=== PATIENT | female | born 1950 | race Caucasian/White ===

== ENCOUNTER 2017-11-07 14:14 | Inpatient (IN) | payer MEDICARE ==
[2017-11-07] MEDS ORDERED: Temazepam 15 MG Cap PO PRN (15:32)
[2017-11-07] MEDS ORDERED: Ondansetron 4 MG/2 ML SDV IV PRN (15:32)
[2017-11-07] MEDS ORDERED: Magnesium Hydroxide 400 MG/5 ML Susp 30 ML Cup PO PRN (15:32)
[2017-11-07] MEDS ORDERED: Acetaminophen 325 MG Tab PO PRN (15:32)
[2017-11-07 16:31] LABS: CHLORIDE,CL 101 mEq/L (98-106); SODIUM,NA 141 mEq/L (136-145)
[2017-11-07] MEDS: Albuterol/Ipratropium 3.0-0.5 MG/3 ML Neb Soln NEB SCH ×2 (16:39→19:40)
[2017-11-07] MEDS: cefTRIAXone 1 GM Vial IVPUSH SCH (16:39)
[2017-11-07] MEDS: Enoxaparin 30 MG/0.3 ML Syringe SUBCUT SCH (16:39)
[2017-11-07] MEDS ORDERED: methylPREDNISolone Sodium Succinate 125 MG/2 ML SDV IVPUSH SCH (16:45)
[2017-11-07] MEDS: Lactated Ringers 1,000 ML IV SCH (16:49)
[2017-11-07] MEDS: Azithromycin 500 MG in Sodium Chloride 0.9% 250 ML IV SCH (16:52)
[2017-11-07] MEDS ORDERED: metFORMIN 500 MG Tab PO SCH (20:30)
[2017-11-07] MEDS: Pregabalin 50 MG Cap PO SCH (20:45)
[2017-11-07] MEDS: traZODone 50 MG Tab PO SCH (20:47)
[2017-11-07] MEDS: Atenolol 50 MG Tab PO SCH (20:47)
[2017-11-07] MEDS: Insulin Aspart 100 Units/ML 3 ML Pen SUBCUT SCH (20:48)
[2017-11-08] MEDS: Lactated Ringers 1,000 ML IV SCH (06:46)
[2017-11-08] MEDS ORDERED: Furosemide 40 MG Tab PO PRN (08:00)
[2017-11-08] MEDS: Albuterol/Ipratropium 3.0-0.5 MG/3 ML Neb Soln NEB SCH ×4 (08:44→20:20)
[2017-11-08] MEDS: Aspirin 81 MG Tab.EC PO SCH (08:44)
[2017-11-08] MEDS: metFORMIN 500 MG Tab PO SCH ×2 (08:44→17:46)
[2017-11-08] MEDS: Atenolol 50 MG Tab PO SCH ×2 (08:44→20:20)
[2017-11-08] MEDS: Hydrochlorothiazide 25 MG Tab PO SCH (08:44)
[2017-11-08] MEDS: FLUoxetine 20 MG Cap PO SCH (08:44)
[2017-11-08] MEDS: Insulin Aspart 100 Units/ML 3 ML Pen SUBCUT SCH ×4 (08:45→20:59)
[2017-11-08] MEDS: Pantoprazole 40 MG Tab.CR PO SCH (08:45)
[2017-11-08] MEDS: methylPREDNISolone Sodium Succinate 125 MG/2 ML SDV IVPUSH SCH (08:55)
[2017-11-08] MEDS: Enoxaparin 30 MG/0.3 ML Syringe SUBCUT SCH (11:23)
[2017-11-08] MEDS: cefTRIAXone 1 GM Vial IVPUSH SCH (16:36)
[2017-11-08] MEDS: Azithromycin 500 MG in Sodium Chloride 0.9% 250 ML IV SCH (16:40)
[2017-11-08] MEDS: Pregabalin 50 MG Cap PO SCH (20:20)
[2017-11-08] MEDS: traZODone 50 MG Tab PO SCH (20:20)
--- NOTE | 2017-11-08 21:20 | PCM.PN ---
- General Info Date of Service: 11/08/17 Admission Dx/Problem (Free Text): UTI Asthma Exacerbation URI Functional Status: Reports: Pain Controlled, Tolerating Diet, Ambulating - Review of Systems General: Reports: Weakness, Fatigue. Denies: Fever HEENT: Reports: Rhinitis Pulmonary: Reports: Shortness of Breath, Cough, Wheezing. Denies: Sputum Cardiovascular: Reports: Edema. Denies: Chest Pain, Lightheadedness Gastrointestinal: Reports: Abdominal Pain (lower quadrant cramping) Genitourinary: Reports: Frequency, Burning Musculoskeletal: Reports: No Symptoms Skin: Reports: No Symptoms Neurological: Reports: No Symptoms - Patient Data Vitals - Most Recent: Last Vital Signs Temp 98.2 F 11/08/17 20:00 Pulse 79 11/08/17 20:20 Resp 20 11/08/17 20:00 BP 135/55 L 11/08/17 20:20 Pulse Ox 94 L 11/08/17 20:00 Weight - Most Recent: 240 lb 9.6 oz I&O - Last 24 Hours: Intake & Output 11/08/17 11/08/17 11/08/17 06:59 14:59 22:59 Intake Total 1000 Balance 1000 Lab Results Last 24 Hours: Laboratory Results - last 24 hr 11/07/17 11/08/17 11/08/17 Range/Units 20:14 07:55 11:45 POC Glucose 201 H 138 H 189 H (75-105) mg/dl 11/08/17 11/08/17 Range/Units 16:46 20:49 POC Glucose 210 H 162 H (75-105) mg/dl Carlos Alberto Results Last 24 Hours: Microbiology 11/08/17 09:30 Gram Stain - Final Sputum - Expectorated Sputum Culture - Final 11/07/17 14:56 Urine Culture - Preliminary Urine, Voided Gram Negative Rods Med Orders - Current: Current Medications Acetaminophen (Tylenol) 650 mg PO Q4H PRN PRN Reason: Pain (Mild 1-3)/fever Albuterol/Ipratropium (Duoneb 3.0-0.5 Mg/3 Ml) 3 ml NEB QID [facility] Last Admin: 11/08/17 20:20 Dose: 3 ml Aspirin (Halfprin) 81 mg PO DAILY [facility] Last Admin: 11/08/17 08:44 Dose: 81 mg Atenolol (Tenormin) 50 mg PO BID [facility] Last Admin: 11/08/17 20:20 Dose: 50 mg Ceftriaxone Sodium (Rocephin) 1 gm IVPUSH DAILY@1600 [facility] Last Admin: 11/08/17 16:36 Dose: 1 gm Enoxaparin Sodium (Lovenox) 30 mg SUBCUT DAILY@1200 [facility] Last Admin: 11/08/17 11:23 Dose: 30 mg Fluoxetine HCl (Prozac) 20 mg PO DAILY [facility] Last Admin: 11/08/17 08:44 Dose: 20 mg Furosemide (Lasix) 40 mg PO DAILY PRN PRN Reason: Edema Hydrochlorothiazide (Hydrochlorothiazide) 25 mg PO DAILY [facility] Last Admin: 11/08/17 08:44 Dose: 25 mg Insulin Aspart (Novolog) 0 unit SUBCUT 0800,1200,1730,2100 [facility]; Protocol Last Admin: 11/08/17 20:59 Dose: 1 units Magnesium Hydroxide (Milk Of Magnesia) 30 ml PO Q12H PRN PRN Reason: Constipation Metformin HCl (Glucophage) 1,000 mg PO BIDMEALS [facility] Last Admin: 11/08/17 17:46 Dose: 1,000 mg Methylprednisolone Sodium Succinate (Solu-Medrol) 62.5 mg IVPUSH DAILY@0800 [facility] Last Admin: 11/08/17 08:55 Dose: 62.5 mg Ondansetron HCl (Zofran) 4 mg IV Q6H PRN PRN Reason: Nausea/Vomiting Pantoprazole Sodium (Protonix) 40 mg PO DAILY@0700 [facility] Last Admin: 11/08/17 08:45 Dose: 40 mg Pregabalin (Lyrica) 50 mg PO BEDTIME [facility] Last Admin: 11/08/17 20:20 Dose: 50 mg Temazepam (Restoril) 15 mg PO BEDTIME PRN PRN Reason: Sleep Trazodone HCl (Trazodone) 50 mg PO BEDTIME [facility] Last Admin: 11/08/17 20:20 Dose: 50 mg Discontinued Medications Azithromycin 500 mg/ Sodium (Chloride) 250 mls @ 250 mls/hr IV DAILY@1600 [facility] Last Admin: 11/08/17 16:40 Dose: 250 mls/hr Lactated Ringer's (Ringers, Lactated) 1,000 mls @ 75 mls/hr IV ASDIRECTED [facility] Last Admin: 11/08/17 06:46 Dose: 75 mls/hr Metformin HCl (Glucophage) 500 mg PO BID [facility] Last Admin: 11/07/17 20:46 Dose: Not Given Methylprednisolone Sodium Succinate (Solu-Medrol) 62.5 mg IVPUSH DAILY@1600 [facility] Last Admin: 11/07/17 16:52 Dose: 62.5 mg - Exam General: Alert, Oriented HEENT: Mucous Membr. Moist/[place] Neck: Supple Lungs: Rhonchi, Wheezing Cardiovascular: Regular Rate, Regular Rhythm GI/Abdominal Exam: Normal Bowel Sounds, Soft, Tender (suprapubic region) Extremities: Normal Inspection, No Pedal Edema Skin: Warm, Dry Neurological: No New Focal Deficit - Problem List & Annotations (1) UTI (urinary tract infection) SNOMED Code(s): 65310681 Code(s): N39.0 - URINARY TRACT INFECTION, SITE NOT SPECIFIED Status: Acute Priority: High Current Visit: Yes (2) Asthma SNOMED Code(s): 748955701 Code(s): J45.909 - UNSPECIFIED ASTHMA, UNCOMPLICATED Status: Acute Priority: High Current Visit: Yes (3) URI (upper respiratory infection) SNOMED Code(s): 15223456 Code(s): J06.9 - ACUTE UPPER RESPIRATORY INFECTION, UNSPECIFIED Status: Acute Priority: High Current Visit: Yes Qualifiers: URI type: unspecified URI Qualified Code(s): J06.9 - Acute upper respiratory infection, unspecified - Problem List Review Problem List Initiated/Reviewed/Updated: Yes - Assessment Assessment:: UTI URI Asthma Exacerbation - Plan Plan:: Patient continues to have cough, shortness of breath. Does state that chest feels tighter today. Oxygen sats are stable. BP stable. Is afebrile. Lung sounds note wheezing and rhonchi scattered throughout. WBC elevated at 11.4 on admit. Troponin negative. UA positive. Initial urine culture noted to have gram negative rods. Will continue with IV Rocephin and Zithromax. DuoNebs. Solu Medrol. Monitor blood sugars due to steroids. Is fasting for renal ultrasound due to suprapubic pain. Reevaluate discharge potential in am.
[2017-11-09] MEDS: Pantoprazole 40 MG Tab.CR PO SCH (06:47)
[2017-11-09] MEDS: Albuterol/Ipratropium 3.0-0.5 MG/3 ML Neb Soln NEB SCH ×4 (07:46→20:02)
[2017-11-09] MEDS: metFORMIN 500 MG Tab PO SCH ×2 (07:47→17:33)
[2017-11-09] MEDS: Atenolol 50 MG Tab PO SCH ×2 (07:47→20:02)
[2017-11-09] MEDS: FLUoxetine 20 MG Cap PO SCH (07:47)
[2017-11-09] MEDS: Aspirin 81 MG Tab.EC PO SCH (07:47)
[2017-11-09] MEDS: methylPREDNISolone Sodium Succinate 125 MG/2 ML SDV IVPUSH SCH (07:47)
[2017-11-09] MEDS: Hydrochlorothiazide 25 MG Tab PO SCH (07:48)
[2017-11-09] MEDS: Insulin Aspart 100 Units/ML 3 ML Pen SUBCUT SCH ×4 (07:50→21:07)
[2017-11-09 08:40] LABS: CHLORIDE,CL 101 mEq/L (98-106); SODIUM,NA 141 mEq/L (136-145)
[2017-11-09] MEDS: Enoxaparin 30 MG/0.3 ML Syringe SUBCUT SCH (11:57)
[2017-11-09] MEDS: cefTRIAXone 1 GM Vial IVPUSH SCH (15:36)
--- NOTE | 2017-11-09 17:36 | PCM.PN ---
- General Info Date of Service: 11/09/17 Admission Dx/Problem (Free Text): UTI Asthma Exacerbation URI Functional Status: Reports: Pain Controlled, Tolerating Diet. Denies: Ambulating - Review of Systems General: Reports: Weakness, Fatigue. Denies: Fever HEENT: Reports: Rhinitis Pulmonary: Reports: Shortness of Breath, Cough, Wheezing. Denies: Sputum Cardiovascular: Denies: Chest Pain, Edema, Lightheadedness Gastrointestinal: Denies: Abdominal Pain, Nausea, Vomiting Genitourinary: Denies: Dysuria (admits burning with urination has improved), Frequency Musculoskeletal: Reports: No Symptoms Skin: Reports: No Symptoms Neurological: Reports: No Symptoms Psychiatric: Reports: No Symptoms - Patient Data Vitals - Most Recent: Last Vital Signs Temp 99 F 11/09/17 16:00 Pulse 77 11/09/17 16:00 Resp 20 11/09/17 16:00 BP 126/74 11/09/17 16:00 Pulse Ox 94 L 11/09/17 16:00 Weight - Most Recent: 240 lb 9.6 oz Lab Results Last 24 Hours: Laboratory Results - last 24 hr 11/08/17 11/09/17 11/09/17 Range/Units 20:49 07:38 08:16 WBC 17.0 H (5.0-10.0) 10^3/uL RBC 4.14 (4.00-5.50) 10^6/uL Hgb 12.8 (12.0-16.0) g/dL Hct 38.2 (37.0-47.0) % MCV 92.3 (82.0-94.0) fL MCH 30.9 (27.0-32.0) pg MCHC 33.5 (33.0-38.0) g/dL RDW Coeff of Katty 13.6 (11.0-15.0) % Plt Count 236 (150-400) 10^3/uL Neut % (Auto) 57.9 (35-85) % Lymph % (Auto) 36.4 (10-55) % [place] % (Auto) 5.5 (0-16) % Eos % (Auto) 0.1 (0-5) % Baso % (Auto) 0.1 (0-3) % Neut # (Auto) 9.84 H (1.80-7.00) 10^3/uL Lymph # (Auto) 6.18 H (1.00-4.80) 10^3/uL [place] # (Auto) 0.94 H (0.00-0.80) 10^3/uL Eos # (Auto) 0.02 (0.00-0.45) 10^3/uL Baso # (Auto) 0.01 10^3/uL Sodium (136-145) mEq/L Potassium (3.5-5.0) mEq/L Chloride (98-106) mEq/L Carbon Dioxide (21-32) mmol/L BUN (7-18) mg/dL Creatinine (0.6-1.0) mg/dL Est Cr Clr Drug Dosing mL/min Estimated GFR (MDRD) (>=60) mL/min Glucose (75-99) mg/dL POC Glucose 162 H 121 H (75-105) mg/dl Calcium (8.4-10.1) mg/dL C-Reactive Protein (0.2-0.8) mg/dL 11/09/17 11/09/17 11/09/17 Range/Units 08:16 11:49 16:53 WBC (5.0-10.0) 10^3/uL RBC (4.00-5.50) 10^6/uL Hgb (12.0-16.0) g/dL Hct (37.0-47.0) % MCV (82.0-94.0) fL MCH (27.0-32.0) pg MCHC (33.0-38.0) g/dL RDW Coeff of Katty (11.0-15.0) % Plt Count (150-400) 10^3/uL Neut % (Auto) (35-85) % Lymph % (Auto) (10-55) % [place] % (Auto) (0-16) % Eos % (Auto) (0-5) % Baso % (Auto) (0-3) % Neut # (Auto) (1.80-7.00) 10^3/uL Lymph # (Auto) (1.00-4.80) 10^3/uL [place] # (Auto) (0.00-0.80) 10^3/uL Eos # (Auto) (0.00-0.45) 10^3/uL Baso # (Auto) 10^3/uL Sodium 141 (136-145) mEq/L Potassium 3.7 (3.5-5.0) mEq/L Chloride 101 (98-106) mEq/L Carbon Dioxide 29 (21-32) mmol/L BUN 20 H (7-18) mg/dL Creatinine 1.1 H (0.6-1.0) mg/dL Est Cr Clr Drug Dosing 46.46 mL/min Estimated GFR (MDRD) 50 L (>=60) mL/min Glucose 123 H D (75-99) mg/dL POC Glucose 153 H 182 H (75-105) mg/dl Calcium 9.0 (8.4-10.1) mg/dL C-Reactive Protein < 0.2 L (0.2-0.8) mg/dL Carlos Alberto Results Last 24 Hours: Microbiology 11/09/17 16:45 Influenza Type A Antigen Screen - Final Nasal, Unspecified NEGATIVE INFLUENZA A VIRUS AG Influenza Type B Antigen Screen - Final NEGATIVE INFLUENZA B VIRUS AG 11/07/17 14:56 Urine Culture - Final Urine, Voided Escherichia Coli Med Orders - Current: Current Medications Acetaminophen (Tylenol) 650 mg PO Q4H PRN PRN Reason: Pain (Mild 1-3)/fever Albuterol/Ipratropium (Duoneb 3.0-0.5 Mg/3 Ml) 3 ml NEB QID [facility] Last Admin: 11/09/17 15:36 Dose: 3 ml Aspirin (Halfprin) 81 mg PO DAILY [facility] Last Admin: 11/09/17 07:47 Dose: 81 mg Atenolol (Tenormin) 50 mg PO BID [facility] Last Admin: 11/09/17 07:47 Dose: 50 mg Ceftriaxone Sodium (Rocephin) 1 gm IVPUSH DAILY@1600 [facility] Last Admin: 11/09/17 15:36 Dose: 1 gm Enoxaparin Sodium (Lovenox) 30 mg SUBCUT DAILY@1200 [facility] Last Admin: 11/09/17 11:57 Dose: 30 mg Fluoxetine HCl (Prozac) 20 mg PO DAILY [facility] Last Admin: 11/09/17 07:47 Dose: 20 mg Furosemide (Lasix) 40 mg PO DAILY PRN PRN Reason: Edema Hydrochlorothiazide (Hydrochlorothiazide) 25 mg PO DAILY [facility] Last Admin: 11/09/17 07:48 Dose: 25 mg Insulin Aspart (Novolog) 0 unit SUBCUT 0800,1200,1730,2100 [facility]; Protocol Last Admin: 11/09/17 11:58 Dose: 1 units Magnesium Hydroxide (Milk Of Magnesia) 30 ml PO Q12H PRN PRN Reason: Constipation Metformin HCl (Glucophage) 1,000 mg PO BIDMEALS [facility] Last Admin: 11/09/17 07:47 Dose: 1,000 mg Methylprednisolone Sodium Succinate (Solu-Medrol) 62.5 mg IVPUSH DAILY@0800 [facility] Last Admin: 11/09/17 07:47 Dose: 62.5 mg Ondansetron HCl (Zofran) 4 mg IV Q6H PRN PRN Reason: Nausea/Vomiting Pantoprazole Sodium (Protonix) 40 mg PO DAILY@0700 [facility] Last Admin: 11/09/17 06:47 Dose: 40 mg Pregabalin (Lyrica) 50 mg PO BEDTIME [facility] Last Admin: 11/08/17 20:20 Dose: 50 mg Temazepam (Restoril) 15 mg PO BEDTIME PRN PRN Reason: Sleep Trazodone HCl (Trazodone) 50 mg PO BEDTIME [facility] Last Admin: 11/08/17 20:20 Dose: 50 mg Discontinued Medications Azithromycin 500 mg/ Sodium (Chloride) 250 mls @ 250 mls/hr IV DAILY@1600 [facility] Last Admin: 11/08/17 16:40 Dose: 250 mls/hr Lactated Ringer's (Ringers, Lactated) 1,000 mls @ 75 mls/hr IV ASDIRECTED [facility] Last Admin: 11/08/17 06:46 Dose: 75 mls/hr Metformin HCl (Glucophage) 500 mg PO BID [facility] Last Admin: 11/07/17 20:46 Dose: Not Given Methylprednisolone Sodium Succinate (Solu-Medrol) 62.5 mg IVPUSH DAILY@1600 [facility] Last Admin: 11/07/17 16:52 Dose: 62.5 mg - Exam General: Alert, Oriented HEENT: Mucous Membr. Moist/[place] Neck: Supple Lungs: Decreased Breath Sounds, Wheezing Cardiovascular: Regular Rate, Regular Rhythm GI/Abdominal Exam: Normal Bowel Sounds, Soft, Non-Tender Extremities: Normal Inspection, No Pedal Edema Skin: Warm, Dry Neurological: No New Focal Deficit - Problem List & Annotations (1) UTI (urinary tract infection) SNOMED Code(s): 72782559 Code(s): N39.0 - URINARY TRACT INFECTION, SITE NOT SPECIFIED Status: Acute Priority: High Current Visit: Yes (2) Asthma SNOMED Code(s): 802100385 Code(s): J45.909 - UNSPECIFIED ASTHMA, UNCOMPLICATED Status: Acute Priority: High Current Visit: Yes (3) URI (upper respiratory infection) SNOMED Code(s): 22404479 Code(s): J06.9 - ACUTE UPPER RESPIRATORY INFECTION, UNSPECIFIED Status: Acute Priority: High Current Visit: Yes Qualifiers: URI type: unspecified URI Qualified Code(s): J06.9 - Acute upper respiratory infection, unspecified - Problem List Review Problem List Initiated/Reviewed/Updated: Yes - Assessment Assessment:: UTI URI Asthma Exacerbation - Plan Plan:: Patient continues to have cough, shortness of breath. Does state that chest feels tighter today. Oxygen sats are stable. BP stable. Is afebrile. Lung sounds note wheezing and rhonchi scattered throughout. WBC elevated at 11.4 on admit. Troponin negative. UA positive. Initial urine culture noted to have gram negative rods. Will continue with IV Rocephin and Zithromax. DuoNebs. Solu Medrol. Monitor blood sugars due to steroids. Is fasting for renal ultrasound due to suprapubic pain. Reevaluate discharge potential in am. 11-09-2017 Patient still noted to have decreased breath sounds, tight but somewhat improved from yesterday. Continues to have diffuse wheezing. Cough remains nonproductive. States abdomen is feeling better today. Less burning with urination. Has remained afebrile. Labs noted. WBC is elevated at 17.0, likely a response to the steroids. Blood sugars have been elevated around 160s- 200. CRP negative. Urine culture does show e coli. Patient had complaints of burning and flushing after receiving zithromax yesterday so was discontinued. As she is covered for the UTI as well with Rocephin, will continue with that. Encouraged ambulation. Continue DuoNebs and steroids. Possible discharge tomorrow.
[2017-11-09] MEDS: traZODone 50 MG Tab PO SCH (20:02)
[2017-11-09] MEDS: Pregabalin 50 MG Cap PO SCH (20:03)
[2017-11-10] MEDS: Pantoprazole 40 MG Tab.CR PO SCH (06:35)
[2017-11-10] MEDS: FLUoxetine 20 MG Cap PO SCH (07:52)
[2017-11-10] MEDS: Hydrochlorothiazide 25 MG Tab PO SCH (07:52)
[2017-11-10] MEDS: Atenolol 50 MG Tab PO SCH ×2 (07:52→19:41)
[2017-11-10] MEDS: methylPREDNISolone Sodium Succinate 125 MG/2 ML SDV IVPUSH SCH (07:52)
[2017-11-10] MEDS: Albuterol/Ipratropium 3.0-0.5 MG/3 ML Neb Soln NEB SCH ×4 (07:52→19:31)
[2017-11-10] MEDS: metFORMIN 500 MG Tab PO SCH ×2 (07:52→17:23)
[2017-11-10] MEDS: Aspirin 81 MG Tab.EC PO SCH (07:52)
[2017-11-10] MEDS: Insulin Aspart 100 Units/ML 3 ML Pen SUBCUT SCH ×4 (08:08→21:39)
[2017-11-10] MEDS ORDERED: Cyanocobalamin (Vitamin B12) 1,000 MCG/ML SDV IM ONE (08:10)
--- NOTE | 2017-11-10 08:46 | PCM.PN ---
- General Info Date of Service: 11/10/17 Admission Dx/Problem (Free Text): UTI Asthma Exacerbation URI Functional Status: Reports: Pain Controlled, Tolerating Diet, Ambulating - Review of Systems General: Reports: Fatigue. Denies: Fever, Weakness HEENT: Reports: Rhinitis Pulmonary: Reports: Shortness of Breath, Cough, Wheezing Cardiovascular: Denies: Chest Pain, Edema, Lightheadedness Gastrointestinal: Denies: Abdominal Pain, Nausea, Vomiting Genitourinary: Reports: No Symptoms Musculoskeletal: Reports: Back Pain Skin: Reports: No Symptoms Neurological: Reports: No Symptoms - Patient Data Vitals - Most Recent: Last Vital Signs Temp 96.6 F 11/10/17 08:00 Pulse 63 11/10/17 08:00 Resp 18 11/10/17 08:00 BP 160/76 H 11/10/17 08:00 Pulse Ox 94 L 11/10/17 08:00 Weight - Most Recent: 240 lb 9.6 oz Lab Results Last 24 Hours: Laboratory Results - last 24 hr 11/09/17 11/09/17 11/09/17 Range/Units 08:16 11:49 16:53 Sodium 141 (136-145) mEq/L Potassium 3.7 (3.5-5.0) mEq/L Chloride 101 (98-106) mEq/L Carbon Dioxide 29 (21-32) mmol/L BUN 20 H (7-18) mg/dL Creatinine 1.1 H (0.6-1.0) mg/dL Est Cr Clr Drug Dosing 46.46 mL/min Estimated GFR (MDRD) 50 L (>=60) mL/min Glucose 123 H D (75-99) mg/dL POC Glucose 153 H 182 H (75-105) mg/dl Calcium 9.0 (8.4-10.1) mg/dL C-Reactive Protein < 0.2 L (0.2-0.8) mg/dL 11/09/17 11/10/17 Range/Units 20:57 08:07 Sodium (136-145) mEq/L Potassium (3.5-5.0) mEq/L Chloride (98-106) mEq/L Carbon Dioxide (21-32) mmol/L BUN (7-18) mg/dL Creatinine (0.6-1.0) mg/dL Est Cr Clr Drug Dosing mL/min Estimated GFR (MDRD) (>=60) mL/min Glucose (75-99) mg/dL POC Glucose 182 H 86 (75-105) mg/dl Calcium (8.4-10.1) mg/dL C-Reactive Protein (0.2-0.8) mg/dL Carlos Alberto Results Last 24 Hours: Microbiology 11/09/17 16:45 Influenza Type A Antigen Screen - Final Nasal, Unspecified NEGATIVE INFLUENZA A VIRUS AG Influenza Type B Antigen Screen - Final NEGATIVE INFLUENZA B VIRUS AG 11/07/17 14:56 Urine Culture - Final Urine, Voided Escherichia Coli Med Orders - Current: Current Medications Acetaminophen (Tylenol) 650 mg PO Q4H PRN PRN Reason: Pain (Mild 1-3)/fever Albuterol/Ipratropium (Duoneb 3.0-0.5 Mg/3 Ml) 3 ml NEB QID [facility] Last Admin: 11/10/17 07:52 Dose: 3 ml Aspirin (Halfprin) 81 mg PO DAILY [facility] Last Admin: 11/10/17 07:52 Dose: 81 mg Atenolol (Tenormin) 50 mg PO BID [facility] Last Admin: 11/10/17 07:52 Dose: 50 mg Ceftriaxone Sodium (Rocephin) 1 gm IVPUSH DAILY@1600 [facility] Last Admin: 11/09/17 15:36 Dose: 1 gm Enoxaparin Sodium (Lovenox) 30 mg SUBCUT DAILY@1200 [facility] Last Admin: 11/09/17 11:57 Dose: 30 mg Fluoxetine HCl (Prozac) 20 mg PO DAILY [facility] Last Admin: 11/10/17 07:52 Dose: 20 mg Furosemide (Lasix) 40 mg PO DAILY PRN PRN Reason: Edema Hydrochlorothiazide (Hydrochlorothiazide) 25 mg PO DAILY [facility] Last Admin: 11/10/17 07:52 Dose: 25 mg Insulin Aspart (Novolog) 0 unit SUBCUT 0800,1200,1730,2100 [facility]; Protocol Last Admin: 11/10/17 08:08 Dose: Not Given Magnesium Hydroxide (Milk Of Magnesia) 30 ml PO Q12H PRN PRN Reason: Constipation Metformin HCl (Glucophage) 1,000 mg PO BIDMEALS [facility] Last Admin: 11/10/17 07:52 Dose: 1,000 mg Methylprednisolone Sodium Succinate (Solu-Medrol) 62.5 mg IVPUSH DAILY@0800 [facility] Last Admin: 11/10/17 07:52 Dose: 62.5 mg Ondansetron HCl (Zofran) 4 mg IV Q6H PRN PRN Reason: Nausea/Vomiting Pantoprazole Sodium (Protonix) 40 mg PO DAILY@0700 [facility] Last Admin: 11/10/17 06:35 Dose: 40 mg Pregabalin (Lyrica) 50 mg PO BEDTIME [facility] Last Admin: 11/09/17 20:03 Dose: 50 mg Temazepam (Restoril) 15 mg PO BEDTIME PRN PRN Reason: Sleep Trazodone HCl (Trazodone) 50 mg PO BEDTIME [facility] Last Admin: 11/09/17 20:02 Dose: 50 mg Discontinued Medications Cyanocobalamin (Vitamin B12) 1,000 mcg IM ONETIME ONE Stop: 11/10/17 08:11 Azithromycin 500 mg/ Sodium (Chloride) 250 mls @ 250 mls/hr IV DAILY@1600 [facility] Last Admin: 11/08/17 16:40 Dose: 250 mls/hr Lactated Ringer's (Ringers, Lactated) 1,000 mls @ 75 mls/hr IV ASDIRECTED [facility] Last Admin: 11/08/17 06:46 Dose: 75 mls/hr Metformin HCl (Glucophage) 500 mg PO BID [facility] Last Admin: 11/07/17 20:46 Dose: Not Given Methylprednisolone Sodium Succinate (Solu-Medrol) 62.5 mg IVPUSH DAILY@1600 [facility] Last Admin: 11/07/17 16:52 Dose: 62.5 mg - Exam General: Alert, Oriented HEENT: Mucous Membr. Moist/[place] Neck: Supple Lungs: Decreased Breath Sounds, Wheezing Cardiovascular: Regular Rate, Regular Rhythm GI/Abdominal Exam: Normal Bowel Sounds, Soft, Non-Tender Back Exam: Normal Inspection, Muscle Spasm, Paraspinal Tenderness Extremities: Normal Inspection, No Pedal Edema Skin: Warm, Dry Neurological: No New Focal Deficit - Problem List & Annotations (1) UTI (urinary tract infection) SNOMED Code(s): 35528225 Code(s): N39.0 - URINARY TRACT INFECTION, SITE NOT SPECIFIED Status: Acute Priority: High Current Visit: Yes (2) Asthma SNOMED Code(s): 926683288 Code(s): J45.909 - UNSPECIFIED ASTHMA, UNCOMPLICATED Status: Acute Priority: High Current Visit: Yes (3) URI (upper respiratory infection) SNOMED Code(s): 31566095 Code(s): J06.9 - ACUTE UPPER RESPIRATORY INFECTION, UNSPECIFIED Status: Acute Priority: High Current Visit: Yes Qualifiers: URI type: unspecified URI Qualified Code(s): J06.9 - Acute upper respiratory infection, unspecified - Problem List Review Problem List Initiated/Reviewed/Updated: Yes - My Orders Last 24 Hours: My Active Orders 11/10/17 08:36 Consult to Physical Therapy [PT Evaluation and Treatment] [CONS] Routine - Assessment Assessment:: UTI URI Asthma Exacerbation - Plan Plan:: Patient continues to have cough, shortness of breath. Does state that chest feels tighter today. Oxygen sats are stable. BP stable. Is afebrile. Lung sounds note wheezing and rhonchi scattered throughout. WBC elevated at 11.4 on admit. Troponin negative. UA positive. Initial urine culture noted to have gram negative rods. Will continue with IV Rocephin and Zithromax. DuoNebs. Solu Medrol. Monitor blood sugars due to steroids. Is fasting for renal ultrasound due to suprapubic pain. Reevaluate discharge potential in am. 11-09-2017 Patient still noted to have decreased breath sounds, tight but somewhat improved from yesterday. Continues to have diffuse wheezing. Cough remains nonproductive. States abdomen is feeling better today. Less burning with urination. Has remained afebrile. Labs noted. WBC is elevated at 17.0, likely a response to the steroids. Blood sugars have been elevated around 160s- 200. CRP negative. Urine culture does show e coli. Patient had complaints of burning and flushing after receiving zithromax yesterday so was discontinued. As she is covered for the UTI as well with Rocephin, will continue with that. Encouraged ambulation. Continue DuoNebs and steroids. Possible discharge tomorrow. 11-10-2017 Patient has significant wheezing this am. Tight cough. Remains afebrile. Denies abdominal pain. Does have low back pain, states may be related to being in bed more and not as active. Renal bladder ultrasound is normal Will continue with current meds. Encourage ambulation. Have physical therapy see her for her back. Probable discharge home tomorrow if wheezing/cough improves.
[2017-11-10] MEDS: Enoxaparin 30 MG/0.3 ML Syringe SUBCUT SCH (11:53)
[2017-11-10] MEDS: cefTRIAXone 1 GM Vial IVPUSH SCH (15:05)
[2017-11-10] MEDS: traZODone 50 MG Tab PO SCH (19:31)
[2017-11-10] MEDS: Pregabalin 50 MG Cap PO SCH (19:32)
[2017-11-11] MEDS: Pantoprazole 40 MG Tab.CR PO SCH (06:26)
[2017-11-11 07:43] VITALS: BP 187/78
[2017-11-11] MEDS: methylPREDNISolone Sodium Succinate 125 MG/2 ML SDV IVPUSH SCH (07:50)
[2017-11-11] MEDS: Albuterol/Ipratropium 3.0-0.5 MG/3 ML Neb Soln NEB SCH (07:55)
[2017-11-11] MEDS: Aspirin 81 MG Tab.EC PO SCH (07:56)
[2017-11-11] MEDS: FLUoxetine 20 MG Cap PO SCH (07:56)
[2017-11-11] MEDS: Hydrochlorothiazide 25 MG Tab PO SCH (07:56)
[2017-11-11] MEDS: metFORMIN 500 MG Tab PO SCH (07:56)
[2017-11-11] MEDS: Atenolol 50 MG Tab PO SCH (07:57)
[2017-11-11] MEDS: Insulin Aspart 100 Units/ML 3 ML Pen SUBCUT SCH (07:58)
--- NOTE | 2017-11-11 12:33 | PCM.DCSUM1 ---
Discharge Summary - Hospital Course Free Text/Narrative:: Patient was admitted from clinic by Cindi for asthma exacerbation, UTI and URI. Had previous had an UTI and was treated, doing well but the 2 days prior to admission was noting more lower abdominal pressure and burning. Also had developed a cough, chest very tight. Audible wheezing was noted on exam. Admitted for IV antibiotics, steroids and nebulizer treatments. Started on Zithromax and Rocephin. Urine culture ordered. Initial labs on admit were noted to have mildly elevated WBC at 11.4, CRP 0.3. Chest xray unremarkable. - Discharge Data Discharge Date: 11/11/17 Discharge Disposition: DC/Tfer W/I Hosp To Swing 61 Condition: Fair - Discharge Diagnosis/Problem(s) (1) UTI (urinary tract infection) SNOMED Code(s): 74696027 ICD Code: N39.0 - URINARY TRACT INFECTION, SITE NOT SPECIFIED Status: Acute Priority: High Qualifiers: Urinary tract infection type: acute cystitis Hematuria presence: with hematuria Qualified Code(s): N30.01 - Acute cystitis with hematuria (2) Asthma SNOMED Code(s): 592791402 ICD Code: J45.909 - UNSPECIFIED ASTHMA, UNCOMPLICATED Status: Acute Priority: High Qualifiers: Asthma severity: mild Asthma persistence: intermittent Asthma complication type: with acute exacerbation Qualified Code(s): J45.21 - Mild intermittent asthma with (acute) exacerbation (3) URI (upper respiratory infection) SNOMED Code(s): 11977277 ICD Code: J06.9 - ACUTE UPPER RESPIRATORY INFECTION, UNSPECIFIED Status: Acute Priority: High Qualifiers: URI type: unspecified URI Qualified Code(s): J06.9 - Acute upper respiratory infection, unspecified - Patient Summary/Data Complications: none Consults: Consultations 11/10/17 08:36 Consult to Physical Therapy [PT Evaluation and Treatment] [CONS] Routine Hospital Course: Patient has had slow improvement yet chest still remains tight, continues to have inspiratory and expiratory wheezing throughout. Feels shortness of breath with any exertion. Has been trying to increase length with ambulation over the last 2 days. Is now afebrile. No further burning with urination or abdominal pressure. Urine culture did show e coli but was sensitive to cephalosporins. Zithromax was stopped after 2 days due to questionable allergy as had burning and flushing from the infusion. Initial sputum culture shows no growth in preliminary. Blood cultures were negative. WBC did rise likely due to steroids as WBC has remained normal. CRP negative. Blood sugars are elevated from steroids but not overally concerning at this point, range from 130s to 210. Transfer to swing bed due to activity intolerance. Continue current treatment plan. Encouraged ambulation. - Patient Instructions Diet: Usual Diet as Tolerated Activity: As Tolerated - Discharge Plan Home Medications: Home Meds Atenolol 50 tab PO BID 02/10/15 [History] Cholecalciferol (Vitamin D3) [Vitamin D] 2,000 unit PO DAILY 02/10/15 [History] FLUoxetine HCl [Prozac] 20 cap PO DAILY 02/10/15 [History] Furosemide [Lasix] 40 mg PO DAILY PRN 02/10/15 [History] Hydrochlorothiazide 25 mg PO DAILY 02/10/15 [History] Multivitamin [Multivitamins] 1 tab PO DAILY 02/10/15 [History] Naproxen Sodium [Aleve] 220 tab PO BID 02/10/15 [History] Omeprazole [Prilosec] 20 mg PO DAILY PRN 02/10/15 [History] cycloSPORINE [Restasis] 1 each EYEBOTH BID 02/10/15 [History] traZODone HCl [Trazodone HCl] 50 mg PO BEDTIME 02/10/15 [History] Aspirin [Ecotrin] 81 mg PO DAILY 11/07/17 [History] Ipratropium/Albuterol Sulfate [Iprat-Albut 0.5-3(2.5) MG/3 ML] 1 ampule NEB QID 11/07/17 [History] Niacin [Niacin ER] 1,000 mg PO DAILY 11/07/17 [History] Pregabalin [Lyrica] 1 cap PO BEDTIME 11/07/17 [History] metFORMIN HCl [Metformin HCl ER] 1,000 mg PO DAILY 11/07/17 [History] Patient Handouts: Urinary Tract Infection, Adult - Discharge Summary/Plan Comment DC Time >30 min.: Yes Discharge Summary/Plan Comment: Transfer to swing bed. Continue with IV rocephin and steroids. Nebs. Time with patient 15 minutes Time for orders 10 minutes Time for documentation 10 minutes - General Info Date of Service: 11/11/17 Admission Dx/Problem (Free Text: UTI Asthma Exacerbation URI Functional Status: Reports: Pain Controlled, Tolerating Diet, Ambulating - Review of Systems General: Reports: Weakness, Fatigue, Malaise. Denies: Fever HEENT: Reports: Rhinitis Pulmonary: Reports: Shortness of Breath, Cough, Wheezing Cardiovascular: Denies: Chest Pain, Edema, Lightheadedness Gastrointestinal: Denies: Abdominal Pain, Constipation, Decreased Appetite, Diarrhea, Nausea, Vomiting Genitourinary: Reports: No Symptoms Musculoskeletal: Reports: No Symptoms Skin: Reports: No Symptoms Neurological: Reports: No Symptoms Psychiatric: Reports: No Symptoms - Patient Data Vitals - Most Recent: Last Vital Signs Temp 96.5 F 11/11/17 07:40 Pulse 56 L 11/11/17 07:57 Resp 16 11/11/17 07:40 BP 187/78 H 11/11/17 07:57 Pulse Ox 95 11/11/17 07:40 Weight - Most Recent: 240 lb 9.6 oz Lab Results - Last 24 hrs: Laboratory Results - last 24 hr 11/10/17 11/10/17 11/11/17 Range/Units 17:22 20:37 07:39 POC Glucose 138 H 159 H 85 (75-105) mg/dl KAYLI Results - Last 24 hrs: Microbiology 11/10/17 10:00 Gram Stain - Final Sputum - Expectorated Sputum Culture - Preliminary No Growth Med Orders - Current: Current Medications Discontinued Medications Acetaminophen (Tylenol) 650 mg PO Q4H PRN PRN Reason: Pain (Mild 1-3)/fever Albuterol/Ipratropium (Duoneb 3.0-0.5 Mg/3 Ml) 3 ml NEB QID [facility] Last Admin: 11/11/17 07:55 Dose: 3 ml Aspirin (Halfprin) 81 mg PO DAILY [facility] Last Admin: 11/11/17 07:56 Dose: 81 mg Atenolol (Tenormin) 50 mg PO BID [facility] Last Admin: 11/11/17 07:57 Dose: 50 mg Ceftriaxone Sodium (Rocephin) 1 gm IVPUSH DAILY@1600 [facility] Last Admin: 11/10/17 15:05 Dose: 1 gm Cyanocobalamin (Vitamin B12) 1,000 mcg IM ONETIME ONE Stop: 11/10/17 08:11 Last Admin: 11/10/17 09:28 Dose: 1,000 mcg Enoxaparin Sodium (Lovenox) 30 mg SUBCUT DAILY@1200 [facility] Last Admin: 11/10/17 11:53 Dose: 30 mg Fluoxetine HCl (Prozac) 20 mg PO DAILY [facility] Last Admin: 11/11/17 07:56 Dose: 20 mg Furosemide (Lasix) 40 mg PO DAILY PRN PRN Reason: Edema Hydrochlorothiazide (Hydrochlorothiazide) 25 mg PO DAILY [facility] Last Admin: 11/11/17 07:56 Dose: 25 mg Azithromycin 500 mg/ Sodium (Chloride) 250 mls @ 250 mls/hr IV DAILY@1600 [facility] Last Admin: 11/08/17 16:40 Dose: 250 mls/hr Lactated Ringer's (Ringers, Lactated) 1,000 mls @ 75 mls/hr IV ASDIRECTED [facility] Last Admin: 11/08/17 06:46 Dose: 75 mls/hr Insulin Aspart (Novolog) 0 unit SUBCUT 0800,1200,1730,2100 [facility]; Protocol Last Admin: 11/11/17 07:58 Dose: Not Given Magnesium Hydroxide (Milk Of Magnesia) 30 ml PO Q12H PRN PRN Reason: Constipation Metformin HCl (Glucophage) 500 mg PO BID [facility] Last Admin: 11/07/17 20:46 Dose: Not Given Metformin HCl (Glucophage) 1,000 mg PO BIDMEALS [facility] Last Admin: 11/11/17 07:56 Dose: 1,000 mg Methylprednisolone Sodium Succinate (Solu-Medrol) 62.5 mg IVPUSH DAILY@1600 [facility] Last Admin: 11/07/17 16:52 Dose: 62.5 mg Methylprednisolone Sodium Succinate (Solu-Medrol) 62.5 mg IVPUSH DAILY@0800 [facility] Last Admin: 11/11/17 07:50 Dose: 62.5 mg Ondansetron HCl (Zofran) 4 mg IV Q6H PRN PRN Reason: Nausea/Vomiting Pantoprazole Sodium (Protonix) 40 mg PO DAILY@0700 [facility] Last Admin: 11/11/17 06:26 Dose: 40 mg Pregabalin (Lyrica) 50 mg PO BEDTIME [facility] Last Admin: 11/10/17 19:32 Dose: 50 mg Temazepam (Restoril) 15 mg PO BEDTIME PRN PRN Reason: Sleep Trazodone HCl (Trazodone) 50 mg PO BEDTIME [facility] Last Admin: 11/10/17 19:31 Dose: 50 mg - Exam General: Reports: Alert, Oriented HEENT: Reports: Mucous Membr. Moist/[place] Neck: Reports: Supple Lungs: Reports: Decreased Breath Sounds, Wheezing Cardiovascular: Reports: Regular Rate, Regular Rhythm GI/Abdominal Exam: Normal Bowel Sounds, Soft, Non-Tender Extremities: Normal Inspection, No Pedal Edema Skin: Reports: Warm, Dry Neurological: Reports: No New Focal Deficit
== END 2017-11-11 10:47 | disposition swing bed (61) | DRG 690 ==
LOC: CC.FCMC 14:14 → CC.MS 14:14 → UNDOADMIN 15:20 → CC.MS 15:32
PROVIDERS: ADMIT Nurse Practitioner Family; ATTEND Family Medicine
DX: N30.01 Acute cystitis with hematuria (principal); J45.21 Mild intermittent asthma with (acute) exacerbation; N39.0 Urinary tract infection, site not specified; J45.909 Unspecified asthma, uncomplicated; J20.9 Acute bronchitis, unspecified; F32.9 Major depressive disorder, single episode, unspecified; M79.7 Fibromyalgia; I10 Essential (primary) hypertension; E78.5 Hyperlipidemia, unspecified; E11.40 Type 2 diabetes mellitus with diabetic neuropathy, unspecified; M19.90 Unspecified osteoarthritis, unspecified site; H35.30 Unspecified macular degeneration; E66.01 Morbid (severe) obesity due to excess calories; M81.0 Age-related osteoporosis without current pathological fracture; M06.9 Rheumatoid arthritis, unspecified; L82.1 Other seborrheic keratosis; G47.33 Obstructive sleep apnea (adult) (pediatric); Z87.891 Personal history of nicotine dependence; Z88.1 Allergy status to other antibiotic agents; Z88.0 Allergy status to penicillin; Z88.2 Allergy status to sulfonamides; Z88.8 Allergy status to other drugs, medicaments and biological substances; Z79.84 Long term (current) use of oral hypoglycemic drugs; Z79.899 Other long term (current) drug therapy; R30.0 Dysuria; R05 Cough; R09.3 Abnormal sputum; R50.9 Fever, unspecified; R09.89 Other specified symptoms and signs involving the circulatory and respiratory systems; R51 Headache; H92.09 Otalgia, unspecified ear; R06.2 Wheezing; R53.1 Weakness; R10.9 Unspecified abdominal pain; R11.0 Nausea; R19.7 Diarrhea, unspecified; R39.15 Urgency of urination; R35.0 Frequency of micturition; R32 Unspecified urinary incontinence; R31.9 Hematuria, unspecified; R06.02 Shortness of breath; R53.83 Other fatigue; Z68.38 Body mass index [BMI] 38.0-38.9, adult; B96.20 Unspecified Escherichia coli [E. coli] as the cause of diseases classified elsewhere; R20.8 Other disturbances of skin sensation; T36.3X5A Adverse effect of macrolides, initial encounter; T38.0X5A Adverse effect of glucocorticoids and synthetic analogues, initial encounter; D72.829 Elevated white blood cell count, unspecified
CPT/HCPCS: 36415; 71046; 76770; 80048; 80053; 81001; 82962; 84484; 85025; 85379; 86140; 87070; 87086; 87088; 87186; 87205; 87804; 93005; 94640; 97161-GP; A9270-GY; J0456; J0696; J1650; J1815-GY; J2930; J3420; J7050; J7120

== ENCOUNTER 2017-11-11 09:51 | Inpatient (IN) | payer MEDICARE ==
[2017-11-11] MEDS ORDERED: Ondansetron 4 MG/2 ML SDV IV PRN (12:13)
[2017-11-11] MEDS ORDERED: Magnesium Hydroxide 400 MG/5 ML Susp 30 ML Cup PO PRN (12:13)
[2017-11-11] MEDS ORDERED: Furosemide 40 MG Tab PO PRN (12:13)
[2017-11-11] MEDS ORDERED: Acetaminophen 325 MG Tab PO PRN (12:13)
[2017-11-11] MEDS ORDERED: Temazepam 15 MG Cap PO PRN (12:13)
[2017-11-11] MEDS: Albuterol/Ipratropium 3.0-0.5 MG/3 ML Neb Soln NEB SCH ×3 (13:07→19:38)
[2017-11-11] MEDS: cefTRIAXone 1 GM Vial IVPUSH SCH (16:48)
[2017-11-11] MEDS: metFORMIN 500 MG Tab PO SCH (17:20)
[2017-11-11] MEDS: Insulin Aspart 100 Units/ML 3 ML Pen SUBCUT SCH ×2 (17:21→22:39)
[2017-11-11] MEDS: Pregabalin 50 MG Cap PO SCH (19:37)
[2017-11-11] MEDS: traZODone 50 MG Tab PO SCH (19:38)
[2017-11-11] MEDS: Atenolol 50 MG Tab PO SCH (19:38)
[2017-11-12] MEDS: Pantoprazole 40 MG Tab.CR PO SCH (06:35)
[2017-11-12 07:44] LABS: CHLORIDE,CL 100 mEq/L (98-106); SODIUM,NA 139 mEq/L (136-145)
[2017-11-12] MEDS: Albuterol/Ipratropium 3.0-0.5 MG/3 ML Neb Soln NEB SCH ×4 (07:58→19:25)
[2017-11-12] MEDS: methylPREDNISolone Sodium Succinate 125 MG/2 ML SDV IVPUSH SCH (07:59)
[2017-11-12] MEDS: metFORMIN 500 MG Tab PO SCH ×2 (08:03→18:11)
[2017-11-12] MEDS: Aspirin 81 MG Tab.EC PO SCH (08:04)
[2017-11-12] MEDS: Atenolol 50 MG Tab PO SCH ×2 (08:04→19:25)
[2017-11-12] MEDS: Hydrochlorothiazide 25 MG Tab PO SCH (08:05)
[2017-11-12] MEDS: FLUoxetine 20 MG Cap PO SCH (08:05)
[2017-11-12] MEDS: Insulin Aspart 100 Units/ML 3 ML Pen SUBCUT SCH ×4 (08:06→22:19)
[2017-11-12] MEDS: Enoxaparin 30 MG/0.3 ML Syringe SUBCUT SCH (11:10)
[2017-11-12] MEDS: cefTRIAXone 1 GM Vial IVPUSH SCH (15:54)
[2017-11-12] MEDS: traZODone 50 MG Tab PO SCH (19:25)
[2017-11-12] MEDS: Pregabalin 50 MG Cap PO SCH (19:25)
[2017-11-13] MEDS: Pantoprazole 40 MG Tab.CR PO SCH (06:56)
[2017-11-13] MEDS: metFORMIN 500 MG Tab PO SCH ×2 (08:24→17:24)
[2017-11-13] MEDS: Aspirin 81 MG Tab.EC PO SCH (08:25)
[2017-11-13] MEDS: Atenolol 50 MG Tab PO SCH ×2 (08:25→19:22)
[2017-11-13] MEDS: FLUoxetine 20 MG Cap PO SCH (08:25)
[2017-11-13] MEDS: Hydrochlorothiazide 25 MG Tab PO SCH (08:26)
[2017-11-13] MEDS: methylPREDNISolone Sodium Succinate 125 MG/2 ML SDV IVPUSH SCH (08:27)
[2017-11-13] MEDS: Insulin Aspart 100 Units/ML 3 ML Pen SUBCUT SCH ×4 (08:33→20:14)
[2017-11-13] MEDS: Albuterol/Ipratropium 3.0-0.5 MG/3 ML Neb Soln NEB SCH ×4 (08:34→19:21)
[2017-11-13] MEDS: Enoxaparin 30 MG/0.3 ML Syringe SUBCUT SCH (11:47)
[2017-11-13] MEDS: cefTRIAXone 1 GM Vial IVPUSH SCH (15:52)
[2017-11-13] MEDS: traZODone 50 MG Tab PO SCH (19:22)
[2017-11-13] MEDS: Pregabalin 50 MG Cap PO SCH (19:22)
[2017-11-14 07:53] VITALS: BP 175/71
[2017-11-14] MEDS: Atenolol 50 MG Tab PO SCH (08:01)
[2017-11-14] MEDS: Aspirin 81 MG Tab.EC PO SCH (08:02)
[2017-11-14] MEDS: FLUoxetine 20 MG Cap PO SCH (08:02)
[2017-11-14] MEDS: methylPREDNISolone Sodium Succinate 125 MG/2 ML SDV IVPUSH SCH (08:02)
[2017-11-14] MEDS: Albuterol/Ipratropium 3.0-0.5 MG/3 ML Neb Soln NEB SCH (08:02)
[2017-11-14] MEDS: Pantoprazole 40 MG Tab.CR PO SCH (08:02)
[2017-11-14] MEDS: Hydrochlorothiazide 25 MG Tab PO SCH (08:02)
[2017-11-14] MEDS: metFORMIN 500 MG Tab PO SCH (08:02)
[2017-11-14] MEDS: Insulin Aspart 100 Units/ML 3 ML Pen SUBCUT SCH (08:03)
--- NOTE | 2017-11-14 21:59 | PCM.DCSUM1 ---
Discharge Summary - Hospital Course Free Text/Narrative:: Patient admitted by Cindi to clinic initially for shortness of breath/asthma exacerbation, URI and UTI. Urine culture positive for e coli. Did continue to have shortness of breath, wheezing during stay. Oxygen sats stable. Fever improved. Had difficulty tolerating activity so was transferred to swing bed for ongoing steroids, antibiotics and neb treatments. - Discharge Data Discharge Date: 11/14/17 Discharge Disposition: Home, Self-Care 01 Condition: Good - Patient Summary/Data Complications: none Consults: Consultations 11/11/17 12:13 Consult to Physical Therapy [PT Evaluation and Treatment] [CONS] Routine Hospital Course: Patient did well over weekend. Has been able to increase activity with mild shortness of breath but quicker recovery. Feels chest is less tight than it had been, wheezing has improved. Does continue to cough, nonproductive. No further burning with urination. No abdominal pain. Urine culture did grow out e coli, covered adequately by Rocephin. She has remained afebrile through the weekend. Lung sounds do continue to show expiratory wheezing scattered throughout but much improved over the last week. - Patient Instructions Diet: Diabetic Diet Activity: As Tolerated - Discharge Plan Prescriptions/Med Rec: Prednisone [IMW: predniSONE] 20 mg PO WITHBREAKFAST #5 tab Home Medications: Home Meds Atenolol 50 tab PO BID 02/10/15 [History] Cholecalciferol (Vitamin D3) [Vitamin D3] 2,000 unit PO DAILY 02/10/15 [History] FLUoxetine HCl [Prozac] 20 cap PO DAILY 02/10/15 [History] Furosemide [Lasix] 40 mg PO DAILY PRN 02/10/15 [History] Hydrochlorothiazide 25 mg PO DAILY 02/10/15 [History] Multivitamin [Multivitamins] 1 tab PO DAILY 02/10/15 [History] Naproxen Sodium [Aleve] 220 tab PO BID 02/10/15 [History] Omeprazole [Prilosec] 20 mg PO DAILY PRN 02/10/15 [History] cycloSPORINE [Restasis] 1 each EYEBOTH BID 02/10/15 [History] traZODone HCl [Trazodone HCl] 50 mg PO BEDTIME 02/10/15 [History] Aspirin [Ecotrin] 81 mg PO DAILY 11/07/17 [History] Ipratropium/Albuterol Sulfate [Iprat-Albut 0.5-3(2.5) MG/3 ML] 1 ampule NEB QID 11/07/17 [History] Niacin [Niacin ER] 1,000 mg PO DAILY 11/07/17 [History] Pregabalin [Lyrica] 1 cap PO BEDTIME 11/07/17 [History] metFORMIN HCl [Metformin HCl ER] 1,000 mg PO DAILY 11/07/17 [History] Prednisone [IMW: predniSONE] 20 mg PO WITHBREAKFAST #5 tab 11/14/17 [Rx] Referrals: Michael Perez MD [Primary Care Provider] - (Follow up with Dr. Perez in 10 days ) - Discharge Summary/Plan Comment DC Time >30 min.: No Discharge Summary/Plan Comment: Discharge home Continue prednisone 20 mg daily for 5 days DuoNebs QID as needed Follow up with Dr. Perez in 10 days - General Info Date of Service: 11/14/17 Admission Dx/Problem (Free Text: ASthma exacerbation URI UTI Functional Status: Reports: Pain Controlled, Tolerating Diet, Ambulating - Review of Systems General: Reports: Fatigue. Denies: Fever, Weakness HEENT: Denies: Sinus Congestion, Rhinitis Pulmonary: Reports: Shortness of Breath, Cough. Denies: Sputum Cardiovascular: Denies: Chest Pain, Edema, Lightheadedness Gastrointestinal: Denies: Abdominal Pain, Nausea, Vomiting Genitourinary: Reports: No Symptoms Musculoskeletal: Reports: No Symptoms Skin: Reports: No Symptoms Neurological: Reports: No Symptoms - Patient Data Vitals - Most Recent: Last Vital Signs Temp 98.0 F 11/14/17 07:53 Pulse 65 11/14/17 08:01 Resp 20 11/14/17 07:53 BP 175/71 H 11/14/17 08:01 Pulse Ox 96 11/14/17 07:53 Weight - Most Recent: 246 lb 14.684 oz Lab Results - Last 24 hrs: Laboratory Results - last 24 hr 11/14/17 Range/Units 07:50 POC Glucose 91 (75-105) mg/dl Med Orders - Current: Current Medications Discontinued Medications Acetaminophen (Tylenol) 650 mg PO Q4H PRN PRN Reason: Pain (Mild 1-3)/fever Albuterol/Ipratropium (Duoneb 3.0-0.5 Mg/3 Ml) 3 ml NEB QID [facility] Last Admin: 11/14/17 08:02 Dose: 3 ml Aspirin (Halfprin) 81 mg PO DAILY [facility] Last Admin: 11/14/17 08:02 Dose: 81 mg Atenolol (Tenormin) 50 mg PO BID [facility] Last Admin: 11/14/17 08:01 Dose: 50 mg Ceftriaxone Sodium (Rocephin) 1 gm IVPUSH DAILY@1600 [facility] Last Admin: 11/13/17 15:52 Dose: 1 gm Enoxaparin Sodium (Lovenox) 30 mg SUBCUT DAILY@1200 [facility] Last Admin: 11/13/17 11:47 Dose: 30 mg Fluoxetine HCl (Prozac) 20 mg PO DAILY [facility] Last Admin: 11/14/17 08:02 Dose: 20 mg Furosemide (Lasix) 40 mg PO DAILY PRN PRN Reason: Edema Hydrochlorothiazide (Hydrochlorothiazide) 25 mg PO DAILY [facility] Last Admin: 11/14/17 08:02 Dose: 25 mg Insulin Aspart (Novolog) 0 unit SUBCUT 0800,1200,1730,2100 [facility]; Protocol Last Admin: 11/14/17 08:03 Dose: Not Given Magnesium Hydroxide (Milk Of Magnesia) 30 ml PO Q12H PRN PRN Reason: Constipation Metformin HCl (Glucophage) 1,000 mg PO BIDMEALS [facility] Last Admin: 11/14/17 08:02 Dose: 1,000 mg Methylprednisolone Sodium Succinate (Solu-Medrol) 62.5 mg IVPUSH DAILY@0800 [facility] Last Admin: 11/14/17 08:02 Dose: 62.5 mg Ondansetron HCl (Zofran) 4 mg IV Q6H PRN PRN Reason: Nausea/Vomiting Pantoprazole Sodium (Protonix) 40 mg PO DAILY@0700 [facility] Last Admin: 11/14/17 08:02 Dose: 40 mg Pregabalin (Lyrica) 50 mg PO BEDTIME [facility] Last Admin: 11/13/17 19:22 Dose: 50 mg Temazepam (Restoril) 15 mg PO BEDTIME PRN PRN Reason: Sleep Trazodone HCl (Trazodone) 50 mg PO BEDTIME [facility] Last Admin: 11/13/17 19:22 Dose: 50 mg - Exam General: Reports: Alert, Oriented HEENT: Reports: Mucous Membr. Moist/[employer] Neck: Reports: Supple Lungs: Reports: Wheezing Cardiovascular: Reports: Regular Rate, Regular Rhythm GI/Abdominal Exam: Normal Bowel Sounds, Soft, Non-Tender Extremities: Normal Inspection, No Pedal Edema Skin: Reports: Warm, Dry Neurological: Reports: No New Focal Deficit
== END 2017-11-14 12:15 | disposition home or self-care (01) | DRG 690 ==
LOC: CC.MS 09:51 → UNDOADMIN 10:50 → CC.MS 10:50
PROVIDERS: ADMIT Family Medicine; ATTEND Family Medicine
DX: N39.0 Urinary tract infection, site not specified (principal); J45.901 Unspecified asthma with (acute) exacerbation; J21.9 Acute bronchiolitis, unspecified; B96.20 Unspecified Escherichia coli [E. coli] as the cause of diseases classified elsewhere; R53.83 Other fatigue; F32.9 Major depressive disorder, single episode, unspecified; M79.7 Fibromyalgia; I10 Essential (primary) hypertension; E78.5 Hyperlipidemia, unspecified; R53.1 Weakness; E11.40 Type 2 diabetes mellitus with diabetic neuropathy, unspecified; M19.90 Unspecified osteoarthritis, unspecified site; E66.01 Morbid (severe) obesity due to excess calories; H35.30 Unspecified macular degeneration; M81.0 Age-related osteoporosis without current pathological fracture; M06.9 Rheumatoid arthritis, unspecified; G47.33 Obstructive sleep apnea (adult) (pediatric); L82.1 Other seborrheic keratosis; Z79.84 Long term (current) use of oral hypoglycemic drugs; Z79.82 Long term (current) use of aspirin; Z79.52 Long term (current) use of systemic steroids; Z79.899 Other long term (current) drug therapy; Z88.1 Allergy status to other antibiotic agents; Z88.0 Allergy status to penicillin; Z88.2 Allergy status to sulfonamides; Z88.8 Allergy status to other drugs, medicaments and biological substances; Z87.891 Personal history of nicotine dependence; Z68.38 Body mass index [BMI] 38.0-38.9, adult
CPT/HCPCS: 36415; 80048; 82962; 85025; 86140; 94640; A9270-GY; J0696; J1650; J2930

== ENCOUNTER → 2019-01-09 | Day surgery (SDC) | payer MEDICARE ==
[~2019-01-09] MED LIST: Lidocaine 1% 20 ML MDV ONE
[2019-01-09 08:18] LABS: HEMOGLOBIN A1C 6.8 % (4.8-6.2)
[2019-01-09 08:45] VITALS: BP 170/85
== END ==
LOC: CC.SDS 08:01
PROVIDERS: ATTEND Family Medicine
DX: I87.2 Venous insufficiency (chronic) (peripheral) (principal); Z88.0 Allergy status to penicillin; Z88.1 Allergy status to other antibiotic agents; Z88.2 Allergy status to sulfonamides
CPT/HCPCS: 36415; 36475; 80061; 81001; 82550; 83036; 83735; 84450; A4216

== ENCOUNTER 2019-07-16 14:33 | Observation (INO) | payer MEDICARE ==
[2019-07-16 15:13] LABS: CHLORIDE,CL 104 mEq/L (98-106); SODIUM,NA 142 mEq/L (136-145)
[2019-07-16] MEDS ORDERED: Albuterol/Ipratropium 3.0-0.5 MG/3 ML Neb Soln NEB ONE (15:43)
--- NOTE | 2019-07-16 16:01 | EDM.PDOC ---
ED HPI GENERAL MEDICAL PROBLEM - General Chief Complaint: Respiratory Problem Stated Complaint: SOB Time Seen by Provider: 07/16/19 14:39 Source of Information: Reports: Patient History Limitations: Reports: No Limitations - History of Present Illness INITIAL COMMENTS - FREE TEXT/NARRATIVE: Merissa is a 68 yo female who presents to the ED with complaints of shortness of breath. States she does have a history of asthma and has been using her inhalers with minimal relief. Admits symptoms started a few weeks ago but recently have gotten worse. States she now has a sore throat and has been losing her voice. States she feels as if she is wheezing a lot. Duration: Getting Worse Location: Reports: Chest - Related Data Allergies Allergy/AdvReac Type Severity Reaction Status Date / Time erythromycin base Allergy Rash Verified 07/16/19 14:34 penicillin Allergy Rash Verified 07/16/19 14:34 Sulfa (Sulfonamide Allergy Renal Verified 07/16/19 14:34 Antibiotics) Failure neosporin optical Allergy Swollen Uncoded 07/16/19 14:34 Eyes Home Meds: Home Meds Cholecalciferol (Vitamin D3) [Vitamin D3] 2,000 unit PO DAILY 02/10/15 [History] FLUoxetine HCl [Prozac] 20 mg PO DAILY 02/10/15 [History] Furosemide [Lasix] 40 mg PO DAILY PRN 02/10/15 [History] Multivitamin [Multivitamins] 1 tab PO DAILY 02/10/15 [History] Naproxen Sodium [Aleve] 220 tab PO BID 02/10/15 [History] traZODone HCl [Trazodone HCl] 50 mg PO BEDTIME 02/10/15 [History] Aspirin [Ecotrin EC] 81 mg PO DAILY 11/07/17 [History] Ipratropium/Albuterol Sulfate [Iprat-Albut 0.5-3(2.5) MG/3 ML] 1 ampule NEB QID 11/07/17 [History] Pregabalin [Lyrica] 50 mg PO DAILY 11/07/17 [History] metFORMIN HCl [Metformin ER Osmotic] 1,000 mg PO DAILY 11/07/17 [History] Albuterol [Ventolin HFA] 2 puff INH BID PRN 01/09/19 [History] Budesonide/Formoterol Fumarate [Symbicort 80-4.5 Mcg Inhaler] 2 puff INH BID [History] Cyanocobalamin (Vitamin B-12) [Cyanocobalamin Injection] 1,000 mcg SQ Q3M [History] Ketoconazole [Nizoral 2% Crm] 1 applic TOP BID 01/09/19 [History] Losartan/Hydrochlorothiazide [Losartan-HCTZ 100-12.5 MG] 1 tab PO DAILY [History] Magnesium Chloride [Slow-Mag] 1 tab PO BID 01/09/19 [History] Montelukast Sodium [Singulair] 10 mg PO DAILY 01/09/19 [History] atorvaSTATin Calcium [Atorvastatin Calcium] 10 mg PO Q48H 01/09/19 [History] cycloSPORINE [Restasis] 1 drop EYEBOTH BID 01/09/19 [History] Past Medical History HEENT History: Reports: Cataract, Impaired Vision, Macular Degeneration Cardiovascular History: Reports: High Cholesterol, Hypertension Respiratory History: Reports: Asthma Gastrointestinal History: Reports: GERD Genitourinary History: Reports: Diabetic Nephropathy, UTI, Recurrent [employer] History: Reports: Musculoskeletal History: Reports: Arthritis, Fibromyalgia Neurological History: Reports: Headaches, Chronic, Neuropathy, Diabetic Psychiatric History: Reports: Depression Endocrine/Metabolic History: Reports: Diabetes, Type II, Obesity/BMI 30+ Hematologic History: Reports: B12 Deficiency Oncologic (Cancer) History: Reports: Basal Cell Carcinoma - Past Surgical History HEENT Surgical History: Reports: Cataract Surgery, Eye Surgery, LASIK, Tonsillectomy GI Surgical History: Reports: Appendectomy, Colonoscopy, EGD Female Surgical History: Reports: D&C Social & Family History - Family History Family Medical History: Noncontributory - Tobacco Use Smoking Status *Q: Former Smoker Used Tobacco, but Quit: Yes Month/Year Tobacco Last Used: long time ago - Caffeine Use Caffeine Use: Reports: None - Recreational Drug Use Recreational Drug Use: No ED ROS GENERAL - Review of Systems Review Of Systems: See Below Constitutional: Reports: Chills, Fatigue. Denies: Fever HEENT: Reports: Throat Pain Respiratory: Reports: Shortness of Breath, Wheezing, Cough, Sputum Cardiovascular: Reports: No Symptoms GI/Abdominal: Reports: No Symptoms : Reports: No Symptoms Musculoskeletal: Reports: No Symptoms Skin: Reports: No Symptoms Neurological: Reports: Dizziness Psychiatric: Reports: No Symptoms ED EXAM, GENERAL - Physical Exam Exam: See Below Exam Limited By: No Limitations General Appearance: Alert, No Apparent Distress, Anxious Eye Exam: Bilateral Eye: Normal Inspection Ears: Normal External Exam, Normal Canal, Hearing Grossly Normal, Normal TMs Nose: Normal Inspection, No Blood, Nasal Drainage Throat/Mouth: Normal Inspection, Normal Lips, Normal Oropharynx, No Airway Compromise Head: Atraumatic, Normocephalic Neck: Normal Inspection, Supple Respiratory/Chest: Decreased Breath Sounds, Wheezing. No: Respiratory Distress , Crackles, Rales Cardiovascular: Regular Rate, Rhythm, No Murmur Extremities: Normal Inspection, Non-Tender, No Pedal Edema Neurological: Alert, Oriented, Normal Cognition, No Motor/Sensory Deficits Psychiatric: Normal Affect, Anxious Skin Exam: Warm, Dry, Intact, Normal Color, No Rash EKG INTERPRETATION EKG Date: 07/16/19 Time: 15:00 Rhythm: NSR Rate (Beats/Min): 82 Comparison: NA - No Prior EKG Course - Vital Signs Last Recorded V/S: Last Vital Signs Temp 98.8 F 07/16/19 14:34 Pulse 88 07/16/19 14:34 Resp 24 H 07/16/19 14:34 BP 137/78 07/16/19 14:34 Pulse Ox 97 07/16/19 14:34 - Orders/Labs/Meds Orders: Active Orders 24 hr Category Date Time Status RT Aerosol Therapy [RC] ASDIRECTED Care 07/16/19 15:43 Active Chest 2V [CR] Stat Exams 07/16/19 14:45 Ordered Labs: Laboratory Tests 07/16/19 07/16/19 Range/Units 15:00 15:00 WBC 10.8 H (5.0-10.0) 10^3/uL RBC 4.47 (4.00-5.50) 10^6/uL Hgb 13.8 (12.0-16.0) g/dL Hct 40.8 (37.0-47.0) % MCV 91.3 (82.0-94.0) fL MCH 30.9 (27.0-32.0) pg MCHC 33.8 (33.0-38.0) g/dL RDW Coeff of Katty 13.7 (11.0-15.0) % Plt Count 236 (150-400) 10^3/uL Neut % (Auto) 50.3 (35-85) % Lymph % (Auto) 41.2 (10-55) % [place] % (Auto) 5.9 (0-16) % Eos % (Auto) 2.2 (0-5) % Baso % (Auto) 0.4 (0-3) % Neut # (Auto) 5.45 (1.80-7.00) 10^3/uL Lymph # (Auto) 4.46 (1.00-4.80) 10^3/uL [place] # (Auto) 0.64 (0.00-0.80) 10^3/uL Eos # (Auto) 0.24 (0.00-0.45) 10^3/uL Baso # (Auto) 0.04 10^3/uL Sodium 142 (136-145) mEq/L Potassium 4.2 (3.5-5.0) mEq/L Chloride 104 (98-106) mEq/L Carbon Dioxide 25 (21-32) mmol/L BUN 21 H (7-18) mg/dL Creatinine 1.3 H (0.6-1.0) mg/dL Est Cr Clr Drug Dosing 38.23 mL/min Estimated GFR (MDRD) 41 L (>=60) mL/min Glucose 175 H (75-99) mg/dL Calcium 9.2 (8.4-10.1) mg/dL C-Reactive Protein < 0.2 L (0.2-0.8) mg/dL Meds: Medications Discontinued Medications Generic Name Dose Route Start Last Admin Trade Name Freq PRN Reason Stop Dose Admin Albuterol/Ipratropium 3 ml 07/16/19 15:43 07/16/19 15:50 Duoneb 3.0-0.5 Mg/3 Ml NEB 07/16/19 15:44 3 ml ONETIME ONE Administration Departure - Departure Time of Disposition: 15:59 Disposition: Refer to Observation Clinical Impression: Acute bronchiolitis Qualifiers: Bronchiolitis organism: unspecified organism Qualified Code(s): J21.9 - Acute bronchiolitis, unspecified Exacerbation of asthma Qualifiers: Asthma severity: mild Asthma persistence: unspecified Qualified Code(s): J45.901 - Unspecified asthma with (acute) exacerbation - Discharge Information Sepsis Event Note - Evaluation Sepsis Screening Result: No Definite Risk - Focused Exam Vital Signs: Vital Signs Temp Pulse Resp BP Pulse Ox 07/16/19 14:34 98.8 F 88 24 H 137/78 97 Date Exam was Performed: 07/16/19 Time Exam was Performed: 15:55 - Problem List & Annotations (1) URI (upper respiratory infection) SNOMED Code(s): 75840874 Code(s): J06.9 - ACUTE UPPER RESPIRATORY INFECTION, UNSPECIFIED Status: Acute Priority: High Current Visit: No Qualifiers: URI type: unspecified URI Qualified Code(s): J06.9 - Acute upper respiratory infection, unspecified (2) Acute bronchiolitis SNOMED Code(s): 6189162 Code(s): J21.9 - ACUTE BRONCHIOLITIS, UNSPECIFIED Status: Acute Current Visit: Yes Qualifiers: Bronchiolitis organism: unspecified organism Qualified Code(s): J21.9 - Acute bronchiolitis, unspecified - My Orders Last 24 Hours: My Active Orders 07/16/19 14:45 Chest 2V [CR] Stat 07/16/19 15:43 RT Aerosol Therapy [RC] ASDIRECTED - Assessment/Plan Admission H&P: Please use this note as an admission H&P Last 24 Hours: My Active Orders 07/16/19 14:45 Chest 2V [CR] Stat 07/16/19 15:43 RT Aerosol Therapy [RC] ASDIRECTED Plan: Merissa'yvan oxygen saturation has been stable during entire time in ED. Will closely monitor and admit to Dr. Perez's services under observation. Will start IV SoluMedrol and antibiotics. Will repeat labs in the am. Labs today overall were stable. Chest x-ray was negative for any infiltrates.
[2019-07-16] MEDS ORDERED: Acetaminophen 325 MG Tab PO PRN (16:37)
[2019-07-16] MEDS ORDERED: Sodium Chloride 0.9% 10 ML Syringe FLUSH PRN (16:37)
[2019-07-16] MEDS ORDERED: Levofloxacin/Dextrose 5%-Water 750 MG in Premix Bag 1 BAG IV SCH (17:00)
[2019-07-16] MEDS: Enoxaparin 40 MG/0.4 ML Syringe SUBCUT SCH (18:16)
[2019-07-16] MEDS: methylPREDNISolone Sodium Succinate 125 MG/2 ML SDV IVPUSH SCH (18:17)
[2019-07-16] MEDS: Albuterol 0.083% 2.5 MG/3 ML Neb Soln NEB SCH (20:20)
[2019-07-16] MEDS ORDERED: Albuterol 8 GM Inhaler INH PRN (20:22)
[2019-07-16] MEDS ORDERED: Montelukast 10 MG Tab PO SCH (20:30)
[2019-07-16] MEDS ORDERED: Furosemide 40 MG Tab PO PRN (20:30)
[2019-07-16] MEDS: Magnesium Chloride 64 MG Tab.ER PO SCH (20:44)
[2019-07-16] MEDS: Gabapentin 300 MG Cap PO SCH (20:44)
[2019-07-16] MEDS: atorvaSTATin 10 MG Tab PO SCH ×3 (20:44→21:05)
[2019-07-16] MEDS ORDERED: traZODone 50 MG Tab PO SCH (20:45)
[2019-07-17] MEDS: methylPREDNISolone Sodium Succinate 125 MG/2 ML SDV IVPUSH SCH ×3 (05:08→20:07)
[2019-07-17 07:18] LABS: CHLORIDE,CL 103 mEq/L (98-106); SODIUM,NA 139 mEq/L (136-145)
[2019-07-17] MEDS ORDERED: FLUoxetine 20 MG Cap PO SCH (08:00)
[2019-07-17] MEDS: Magnesium Chloride 64 MG Tab.ER PO SCH ×2 (08:42→20:07)
[2019-07-17] MEDS: Aspirin 81 MG Tab.EC PO SCH (08:42)
[2019-07-17] MEDS: Albuterol 0.083% 2.5 MG/3 ML Neb Soln NEB SCH ×4 (08:42→20:07)
[2019-07-17] MEDS: Cholecalciferol (Vitamin D3) 25 MCG Tab PO SCH (08:42)
[2019-07-17] MEDS: Gabapentin 300 MG Cap PO SCH (08:42)
--- NOTE | 2019-07-17 09:04 | PCM.PN ---
- General Info Date of Service: 07/17/19 Admission Dx/Problem (Free Text): Bronchitis Asthma Exacerbation Functional Status: Reports: Pain Controlled, Tolerating Diet, Ambulating - Review of Systems General: Reports: Weakness, Fatigue, Malaise. Denies: Fever HEENT: Reports: Rhinitis Pulmonary: Reports: Shortness of Breath, Cough, Wheezing Cardiovascular: Reports: No Symptoms Gastrointestinal: Denies: Abdominal Pain, Nausea, Vomiting Genitourinary: Reports: No Symptoms Musculoskeletal: Reports: No Symptoms Skin: Reports: No Symptoms Neurological: Reports: Weakness - Patient Data Vitals - Most Recent: Last Vital Signs Temp 97 F 07/17/19 04:00 Pulse 78 07/17/19 04:00 Resp 16 07/17/19 04:00 BP 122/67 07/17/19 04:00 Pulse Ox 95 07/17/19 04:00 Weight - Most Recent: 264 lb Lab Results Last 24 Hours: Laboratory Results - last 24 hr 07/16/19 07/16/19 07/16/19 Range/Units 15:00 15:00 18:31 WBC 10.8 H (5.0-10.0) 10^3/uL RBC 4.47 (4.00-5.50) 10^6/uL Hgb 13.8 (12.0-16.0) g/dL Hct 40.8 (37.0-47.0) % MCV 91.3 (82.0-94.0) fL MCH 30.9 (27.0-32.0) pg MCHC 33.8 (33.0-38.0) g/dL RDW Coeff of Katty 13.7 (11.0-15.0) % Plt Count 236 (150-400) 10^3/uL Neut % (Auto) 50.3 (35-85) % Lymph % (Auto) 41.2 (10-55) % [place] % (Auto) 5.9 (0-16) % Eos % (Auto) 2.2 (0-5) % Baso % (Auto) 0.4 (0-3) % Neut # (Auto) 5.45 (1.80-7.00) 10^3/uL Lymph # (Auto) 4.46 (1.00-4.80) 10^3/uL [place] # (Auto) 0.64 (0.00-0.80) 10^3/uL Eos # (Auto) 0.24 (0.00-0.45) 10^3/uL Baso # (Auto) 0.04 10^3/uL Sodium 142 (136-145) mEq/L Potassium 4.2 (3.5-5.0) mEq/L Chloride 104 (98-106) mEq/L Carbon Dioxide 25 (21-32) mmol/L BUN 21 H (7-18) mg/dL Creatinine 1.3 H (0.6-1.0) mg/dL Est Cr Clr Drug Dosing 38.23 mL/min Estimated GFR (MDRD) 41 L (>=60) mL/min Glucose 175 H (75-99) mg/dL POC Glucose 128 H (75-105) mg/dl Calcium 9.2 (8.4-10.1) mg/dL C-Reactive Protein < 0.2 L (0.2-0.8) mg/dL 07/17/19 07/17/19 Range/Units 06:45 06:45 WBC 13.3 H (5.0-10.0) 10^3/uL RBC 4.28 (4.00-5.50) 10^6/uL Hgb 13.4 (12.0-16.0) g/dL Hct 38.5 (37.0-47.0) % MCV 90.0 (82.0-94.0) fL MCH 31.3 (27.0-32.0) pg MCHC 34.8 (33.0-38.0) g/dL RDW Coeff of Katty 13.2 (11.0-15.0) % Plt Count 233 (150-400) 10^3/uL Neut % (Auto) 73.8 (35-85) % Lymph % (Auto) 23.1 (10-55) % [place] % (Auto) 2.9 (0-16) % Eos % (Auto) 0.1 (0-5) % Baso % (Auto) 0.1 (0-3) % Neut # (Auto) 9.81 H (1.80-7.00) 10^3/uL Lymph # (Auto) 3.06 (1.00-4.80) 10^3/uL [place] # (Auto) 0.38 (0.00-0.80) 10^3/uL Eos # (Auto) 0.01 (0.00-0.45) 10^3/uL Baso # (Auto) 0.01 10^3/uL Sodium 139 (136-145) mEq/L Potassium 5.0 (3.5-5.0) mEq/L Chloride 103 (98-106) mEq/L Carbon Dioxide 24 (21-32) mmol/L BUN 22 H (7-18) mg/dL Creatinine 1.2 H (0.6-1.0) mg/dL Est Cr Clr Drug Dosing 41.42 mL/min Estimated GFR (MDRD) 45 L (>=60) mL/min Glucose 224 H D (75-99) mg/dL POC Glucose (75-105) mg/dl Calcium 9.4 (8.4-10.1) mg/dL C-Reactive Protein < 0.2 L (0.2-0.8) mg/dL Carlos Alberto Results Last 24 Hours: Microbiology 07/16/19 15:00 Influenza Type A Antigen Screen - Final Nasopharyngeal Swab NEGATIVE INFLUENZA A VIRUS AG REFERENCE RANGE: NEGATIVE Influenza Type B Antigen Screen - Final NEGATIVE INFLUENZA B VIRUS AG REFERENCE RANGE: NEGATIVE Med Orders - Current: Current Medications Acetaminophen (Tylenol) 650 mg PO Q4H PRN PRN Reason: Pain (Mild 1-3)/fever Albuterol (Proventil Neb Soln) 2.5 mg NEB QIDRT [facility] Last Admin: 07/17/19 08:42 Dose: 2.5 mg Albuterol (Ventolin Hfa) 0 gm INH BID PRN PRN Reason: DYSPNEA Aspirin (Halfprin) 81 mg PO DAILY [facility] Last Admin: 07/17/19 08:42 Dose: 81 mg Atorvastatin Calcium (Lipitor) 10 mg PO BEDTIME [facility] Last Admin: 07/16/19 21:05 Dose: Not Given Cholecalciferol (Vitamin D3) 50 mcg PO DAILY [facility] Last Admin: 07/17/19 08:42 Dose: 50 mcg Enoxaparin Sodium (Lovenox) 40 mg SUBCUT Q24H [facility] Last Admin: 07/16/19 18:16 Dose: 40 mg Fluoxetine HCl (Prozac) 20 mg PO DAILY [facility] Last Admin: 07/17/19 08:42 Dose: 20 mg Furosemide (Lasix) 40 mg PO DAILY PRN PRN Reason: EDEMA Gabapentin (Neurontin) 300 mg PO TID [facility] Last Admin: 07/17/19 08:42 Dose: 300 mg Levofloxacin/Dextrose 750 mg/ (Premix) 150 mls @ 150 mls/hr IV Q48H [facility] Last Admin: 07/16/19 18:20 Dose: 150 mls/hr Magnesium Chloride (Mag-64) 128 mg PO BID [facility] Last Admin: 07/17/19 08:42 Dose: 128 mg Methylprednisolone Sodium Succinate (Solu-Medrol) 62.5 mg IVPUSH Q12H [facility] Last Admin: 07/17/19 05:08 Dose: 62.5 mg Montelukast Sodium (Singulair) 10 mg PO BEDTIME [facility] Last Admin: 07/16/19 20:44 Dose: 10 mg Non-Formulary Medication (Budesonide/Formoterol Fumarate [Symbicort 80-4.5 Mcg] ) 2 puff INH BID [facility] Non-Formulary Medication (Cyclosporine [Restasis]) 1 drop EYEBOTH BID [facility] Non-Formulary Medication (Ipratropium/Albuterol Sulfate [Iprat-Albut 0.5-3(2.5) Mg/3 Ml]) 1 ampule NEB QID PRN PRN Reason: Shortness of Breath Non-Formulary Medication (Losartan/Hydrochlorothiazide [Losartan-Hctz 100-12.5 Mg]) 1 tab PO DAILY [facility] Non-Formulary Medication (Metformin Hcl [Metformin Er Osmotic]) 1,000 mg PO DAILY [facility] Non-Formulary Medication (Naproxen Sodium [Aleve]) 220 tab PO BID [facility] Sodium Chloride (Saline Flush) 10 ml FLUSH ASDIRECTED PRN PRN Reason: Keep Vein Open Trazodone HCl (Trazodone) 50 mg PO BEDTIME [facility] Last Admin: 07/16/19 20:45 Dose: 50 mg Discontinued Medications Albuterol/Ipratropium (Duoneb 3.0-0.5 Mg/3 Ml) 3 ml NEB ONETIME ONE Stop: 07/16/19 15:44 Last Admin: 07/16/19 15:50 Dose: 3 ml - Exam General: Alert, Oriented, Mild Distress HEENT: Mucous Membr. Moist/[place] Neck: Supple Lungs: Decreased Breath Sounds, Wheezing Cardiovascular: Regular Rate, Regular Rhythm GI/Abdominal Exam: Normal Bowel Sounds, Soft, Non-Tender Extremities: Normal Inspection, No Pedal Edema Skin: Warm, Dry Neurological: No New Focal Deficit Sepsis Event Note - Evaluation Sepsis Screening Result: No Definite Risk - Focused Exam Vital Signs: Vital Signs Temp Pulse Resp BP Pulse Ox 07/17/19 04:00 97 F 78 16 122/67 95 07/17/19 00:42 72 141/66 H 07/17/19 00:00 98 F 88 20 182/100 H 99 Date Exam was Performed: 07/17/19 Time Exam was Performed: 08:52 - Problem List & Annotations (1) Acute bronchiolitis SNOMED Code(s): 0179011 Code(s): J21.9 - ACUTE BRONCHIOLITIS, UNSPECIFIED Status: Acute Priority : High Current Visit: Yes Qualifiers: Bronchiolitis organism: unspecified organism Qualified Code(s): J21.9 - Acute bronchiolitis, unspecified (2) Exacerbation of asthma SNOMED Code(s): 691131545 Code(s): J45.901 - UNSPECIFIED ASTHMA WITH (ACUTE) EXACERBATION Status: Acute Priority: High Current Visit: Yes Qualifiers: Asthma severity: mild Asthma persistence: unspecified Qualified Code(s): J45.901 - Unspecified asthma with (acute) exacerbation - Problem List Review Problem List Initiated/Reviewed/Updated: Yes - Assessment Assessment:: Acute Bronchitis Asthma Exacerbation - Plan Plan:: Patient admits to still feeling weak and short of breath. Oxygen sat 96% on room air. Blood pressure is elevated today, has not had her usual blood pressure med as has no home meds here and refuses to take ours during observation stay due to cost. Lung sounds noted to have fine expiratory wheezing. Labs noted, elevated WBC at 13.3, is on steroids. CRP is negative. BMP normal stable. Will continue with IV Levaquin and Solu Medrol. Continue nebs. Probable discharge home tomorrow.
[2019-07-17] MEDS ORDERED: Albuterol/Ipratropium 3.0-0.5 MG/3 ML Neb Soln INH PRN (12:30)
[2019-07-17] MEDS: FORMOTEROL FUMARATE INH SCH ×4 (14:34→20:06)
[2019-07-17] MEDS: CYCLOSPORINE EYEBOTH SCH ×4 (14:34→20:07)
[2019-07-17] MEDS: BUDESONIDE INH SCH ×4 (14:34→20:06)
[2019-07-17] MEDS: HYDROCHLOROTHIAZIDE PO SCH (14:35)
[2019-07-17] MEDS: LOSARTAN PO SCH (14:35)
[2019-07-17] MEDS: metFORMIN 500 MG Tab.ER**OWN MED PO SCH (14:37)
[2019-07-17] MEDS: NAPROXEN SODIUM PO SCH ×2 (14:38→20:08)
[2019-07-17] MEDS: FLUoxetine 20 MG Cap**OWN MED PO SCH (14:38)
[2019-07-17] MEDS: Gabapentin 300 MG Cap**OWN MED PO SCH ×2 (14:39→20:09)
[2019-07-17] MEDS: Enoxaparin 40 MG/0.4 ML Syringe SUBCUT SCH (16:37)
[2019-07-17] MEDS ORDERED: traZODone 50 MG Tab**OWN MED PO SCH (20:00)
[2019-07-17] MEDS ORDERED: atorvaSTATin 10 MG Tab**OWN MED PO SCH (20:00)
[2019-07-17] MEDS ORDERED: Montelukast 10 MG Tab**OWN MED PO SCH (20:00)
[2019-07-18] MEDS: Albuterol 0.083% 2.5 MG/3 ML Neb Soln NEB SCH ×2 (07:24→11:41)
[2019-07-18] MEDS: methylPREDNISolone Sodium Succinate 125 MG/2 ML SDV IVPUSH SCH (07:27)
[2019-07-18] MEDS: FORMOTEROL FUMARATE INH SCH (07:28)
[2019-07-18] MEDS: CYCLOSPORINE EYEBOTH SCH (07:28)
[2019-07-18] MEDS: BUDESONIDE INH SCH (07:28)
[2019-07-18] MEDS: metFORMIN 500 MG Tab.ER**OWN MED PO SCH (07:29)
[2019-07-18] MEDS: LOSARTAN PO SCH (07:30)
[2019-07-18] MEDS: HYDROCHLOROTHIAZIDE PO SCH (07:30)
[2019-07-18] MEDS: NAPROXEN SODIUM PO SCH (07:30)
[2019-07-18] MEDS: Gabapentin 300 MG Cap**OWN MED PO SCH ×2 (07:31→15:55)
[2019-07-18] MEDS: FLUoxetine 20 MG Cap**OWN MED PO SCH (07:31)
[2019-07-18] MEDS: Aspirin 81 MG Tab.EC PO SCH (07:33)
[2019-07-18] MEDS: Cholecalciferol (Vitamin D3) 25 MCG Tab PO SCH (07:34)
[2019-07-18] MEDS: Magnesium Chloride 64 MG Tab.ER PO SCH (07:34)
[2019-07-18] MEDS ORDERED: Take Home: Levofloxacin 500 MG Tab, 1 Tab Pack PO ONE (13:08)
[2019-07-18] MEDS ORDERED: Take Home: Albuterol/Ipratropium 3.0-0.5 MG/3 ML Neb Soln, 4 Neb Pack NEB ONE (13:16)
[2019-07-18 13:18] VITALS: BP 114/68; PULSE 94
[2019-07-18] MEDS ORDERED: Levofloxacin 500 MG Tab PO ONE (14:54)
[2019-07-18] MEDS ORDERED: Albuterol/Ipratropium 3.0-0.5 MG/3 ML Neb Soln INH ONE (14:54)
--- NOTE | 2019-07-19 08:34 | DISCH ---
ADMISSION DIAGNOSES: 1. Acute bronchiolitis. 2. Asthma exacerbation. DISCHARGE DIAGNOSIS: 1. ACUTE BRONCHIOLITIS. 2. ASTHMA EXACERBATION. HISTORY: Merissa is a 68-year-old female who initially presented on the 07/16/2019 with complaints of shortness of breath. She does have a history of asthma and her inhalers were giving her minimal relief. Symptoms had been present for the last couple of weeks and were to progress to get worse. She was also having sore throat and losing of voice and did feel like she was wheezing a lot. She was admitted to the hospital for IV antibiotics, IV steroids, and nebulizer treatments. HOSPITAL COURSE: The patient gradually improved during her stay and yesterday she did have some weakness and continued shortness of breath. Today, she is feeling a lot better. Oxygen saturations have been stable the entire time she has been in the hospital, 96% on room air. Lung sounds have definitely improved. Overall, she is feeling a lot better, does feel that she can go home at this point in time. PHYSICAL EXAMINATION: HEENT: Grossly unremarkable. LUNGS: Mild wheezes noticed in the bases, otherwise are clear throughout, much improved from admission. CARDIAC: Regular rate and rhythm. No pedal edema is noted. ABDOMEN: Soft. Bowel sounds are present. No active organomegaly. No guarding or rigidity. SKIN: Uniformly pink, warm, and dry. LABORATORY WORK: On admission, white blood count was 10,800, did go up to 13,300. CRP has been less than 0.2. Creatinine has been stable in the 1.3 to 1.2 range. D-dimer was completed, was 0.23. ProBNP was normal at 669. EKG showed normal sinus rhythm at 82 beats per minute. Chest x-ray was stable. No acute cardiopulmonary disease. DISCHARGE MEDICATIONS: We will resume home medications. We will have her continue with albuterol nebulizer treatments at home as she does have a neb machine. We will put on Levaquin 500 mg daily for the next 5 days as well. We will continue Symbicort and albuterol rescue inhaler. FOLLOWUP APPOINTMENTS: Dr. Michael Perez in 1 week, primary provider for recheck. DISPOSITION: Home. [place] /[id number]
== END 2019-07-18 14:55 | disposition home or self-care (01) ==
LOC: CC.ED 14:33 → CC.MS 16:02 → UNDOADMOB 16:03 → CC.MS 16:03
PROVIDERS: ADMIT Physician Assistant Medical; ATTEND Family Medicine
DX: J21.9 Acute bronchiolitis, unspecified (principal); J45.901 Unspecified asthma with (acute) exacerbation; E78.00 Pure hypercholesterolemia, unspecified; I10 Essential (primary) hypertension; K21.9 Gastro-esophageal reflux disease without esophagitis; E11.21 Type 2 diabetes mellitus with diabetic nephropathy; M19.90 Unspecified osteoarthritis, unspecified site; E11.40 Type 2 diabetes mellitus with diabetic neuropathy, unspecified; E66.9 Obesity, unspecified; E53.8 Deficiency of other specified B group vitamins; Z88.1 Allergy status to other antibiotic agents; Z88.0 Allergy status to penicillin; Z88.2 Allergy status to sulfonamides; Z79.82 Long term (current) use of aspirin; Z79.84 Long term (current) use of oral hypoglycemic drugs; Z87.891 Personal history of nicotine dependence; Z79.899 Other long term (current) drug therapy; R06.02 Shortness of breath
CPT/HCPCS: 36415; 71046; 80048; 82962; 83880; 85025; 85379; 86140; 87804; 93005; 94640; 96365; 96372; 96375; 96376; 99217; 99220; 99225; 99285; A9270; G0378; J1650; J1956; J2930; 93010; J7613-GY; J7620-GY

== ENCOUNTER 2023-06-10 14:17 | Inpatient (IN) | payer MEDICARE ==
[2023-06-10 14:42] LABS: BASOPHILS ABSOLUTE AUTO 0.08 10^3/uL (0.00-0.50); BASOPHILS PERCENT AUTO 0.8 % (0-1); EOSINOPHILS ABSOLUTE AUTO 0.18 10^3/uL (0.00-1.50); EOSINOPHILS PERCENT AUTO 1.8 % (0-6); HEMOGLOBIN 13.8 g/dL (12.0-16.0); IMMATURE GRAN ABSOLUTE AUTO 0.06 10^3/uL (0.00-0.49); IMMATURE GRAN PERCENT AUTO 0.6 % (0.0-4.9); LYMPHOCYTES ABSOLUTE AUTO 3.77 10^3/uL (0.60-5.00); LYMPHOCYTES PERCENT AUTO 36.7 % (24-44); MEAN CORPUSCULAR HEMOGLOBIN 31.2 pg (27.0-32.0); MEAN CORPUSCULAR HGB CONC 33.7 g/dL (32.0-36.0); MEAN CORPUSCULAR VOLUME 92.8 fL (83.0-97.0); MONOCYTES ABSOLUTE AUTO 0.91 10^3/uL (0.00-1.50); MONOCYTES PERCENT AUTO 8.9 % (0-10); NEUTROPHILS ABSOLUTE AUTO 5.27 x10^3/uL (1.80-8.00); NEUTROPHILS PERCENT AUTO 51.2 % (41-71); PLATELET COUNT,PLT 229 10^3/uL (150-400); RED BLOOD CELL COUNT 4.42 x10^6/uL (4.00-5.50); WHITE BLOOD CELL COUNT,WBC 10.3 10^3/uL (4.0-11.0)
[2023-06-10 14:56] LABS: ALANINE AMINOTRANSFERASE,ALT 24 U/L (12-78); ALBUMIN 3.5 g/dL (3.4-5.0); ALKALINE PHOSPHATASE 62 U/L (46-116); ASPARTATE AMNIOTRANSFERASE,AST 28 U/L (15-37); BILIRUBIN TOTAL 0.5 mg/dL (0.0-1.0); BLOOD UREA NITROGEN,BUN 27 mg/dL (7-18); CALCIUM 9.4 mg/dL (8.4-10.1); CARBON DIOXIDE,CO2 30 mmol/L (21-32); CHLORIDE,CL 100 mEq/L (98-106); CREATININE 1.5 mg/dL (0.6-1.0); GLUCOSE RANDOM 139 mg/dL (75-99); MAGNESIUM 1.2 mg/dL (1.8-2.4); POTASSIUM,K 4.1 mEq/L (3.5-5.0); PROTEIN TOTAL,TP 7.5 g/dL (6.4-8.2); SODIUM,NA 140 mEq/L (136-145)
[2023-06-10 14:58] LABS: ESTIMATED GFR 37 mL/min (>=60)
[2023-06-10] MEDS ORDERED: Albuterol/Ipratropium 3.0-0.5 MG/3 ML Neb Soln NEB PRN (15:46)
[2023-06-10] MEDS ORDERED: Polyethylene Glycol 3350 Powder 17 GM Packet PO PRN (15:46)
[2023-06-10] MEDS ORDERED: Ondansetron 4 MG/2 ML SDV IV PRN (15:46)
[2023-06-10] MEDS ORDERED: Sodium Chloride 0.9% 10 ML Syringe FLUSH PRN (15:46)
[2023-06-10] MEDS ORDERED: Docusate Sodium 100 MG Cap PO PRN (15:46)
[2023-06-10] MEDS ORDERED: Ondansetron 4 MG Tab.DIS PO PRN (15:46)
[2023-06-10] MEDS ORDERED: REMDESIVIR 200 MG in Sodium Chloride 0.9% 250 ML IV ONE (15:53)
[2023-06-10] MEDS ORDERED: Magnesium Sulfate/Water 2 GM in Premix Bag 1 BAG IV ONE (15:53)
[2023-06-10] MEDS ORDERED: Albuterol 6.7 GM Inhaler INH PRN (17:01)
[2023-06-10] MEDS ORDERED: Furosemide 40 MG Tab PO PRN (17:01)
[2023-06-10 17:16] LABS: APPEARANCE,URINE SLIGHTLY CLOUDY (CLEAR); BILIRUBIN,URINE NEGATIVE (NEGATIVE); COLOR,URINE YELLOW (YELLOW); GLUCOSE,URINE NEGATIVE (NEGATIVE); KETONES,URINE NEGATIVE (NEGATIVE); LEUKOCYTE ESTERASE,URINE SMALL (NEGATIVE); NITRITE,URINE NEGATIVE (NEGATIVE); OCCULT BLOOD,URINE NEGATIVE (NEGATIVE); PH,URINE 6.5 (4.5-8.0); PROTEIN,URINE NEGATIVE (NEGATIVE); UROBILINOGEN,URINE 0.2 EU/dL (0.2-1.0)
[2023-06-10 17:23] LABS: BACTERIA,URINE MODERATE /HPF (NOT SEEN); EPITHELIAL CELLS,URINE MODERATE /HPF (NOT SEEN); RBC,URINE 0-5 /HPF (0-5)
[2023-06-10] MEDS ORDERED: Polyvinyl Alcohol 1.4% Ophth Soln 15 ML Bottle EYEBOTH PRN (18:17)
[2023-06-10] MEDS: Apixaban 5 MG Tab PO SCH (19:28)
[2023-06-10] MEDS: Gabapentin 300 MG Cap PO SCH (19:28)
[2023-06-10] MEDS: Calcium Carbonate/Vitamin D3 1250 MG-5 MCG Tab PO SCH (19:28)
[2023-06-10] MEDS: traZODone 50 MG Tab PO SCH (19:28)
[2023-06-10] MEDS: atorvaSTATin 10 MG Tab PO SCH (19:28)
[2023-06-10] MEDS: Polyvinyl Alcohol 1.4% Ophth Soln 15 ML Bottle EYEBOTH SCH (19:29)
[2023-06-10] MEDS: Formoterol/Mometasone 100-5 MCG 8.8 GM Inhaler IH SCH (19:29)
[2023-06-10] MEDS: Montelukast 10 MG Tab PO SCH (19:29)
[2023-06-10] MEDS: Fluticasone NASAL Spray 16 GM Bottle NASBOTH SCH (19:30)
[2023-06-10] MEDS ORDERED: Non-Formulary Medication 1 Each (Cyclosporine [Restasis] 1 EACH Each) EYEBOTH SCH (20:00)
[2023-06-10] MEDS ORDERED: Non-Formulary Medication 1 Each (Budesonide/Formoterol Fumarate [Symbicort 80-4.5 Mcg Inha INH SCH (20:00)
[2023-06-10] MEDS ORDERED: VITAMIN D3 PO SCH (20:00)
[2023-06-10] MEDS ORDERED: [UNRECOGNIZED DRUG - OTHER] PO SCH (20:00)
[2023-06-10] MEDS ORDERED: CALCIUM CITRATE PO SCH (20:00)
[2023-06-11] MEDS ORDERED: METFORMIN HCL 1000 MG PO SCH (08:00)
[2023-06-11] MEDS ORDERED: Liraglutide (rDNA Origin) 0.6 MG/0.1 ML 3 ML Pen SUBCUT SCH (08:00)
[2023-06-11] MEDS ORDERED: [UNRECOGNIZED DRUG - OTHER] PO SCH (08:00)
[2023-06-11 08:14] LABS: BASOPHILS ABSOLUTE AUTO 0.07 10^3/uL (0.00-0.50); BASOPHILS PERCENT AUTO 0.8 % (0-1); EOSINOPHILS ABSOLUTE AUTO 0.28 10^3/uL (0.00-1.50); EOSINOPHILS PERCENT AUTO 3.1 % (0-6); HEMATOCRIT 36.6 % (37.0-47.0); HEMOGLOBIN 12.1 g/dL (12.0-16.0); IMMATURE GRAN ABSOLUTE AUTO 0.03 10^3/uL (0.00-0.49); IMMATURE GRAN PERCENT AUTO 0.3 % (0.0-4.9); LYMPHOCYTES ABSOLUTE AUTO 4.22 10^3/uL (0.60-5.00); MEAN CORPUSCULAR HGB CONC 33.1 g/dL (32.0-36.0); MEAN CORPUSCULAR VOLUME 93.8 fL (83.0-97.0); MONOCYTES ABSOLUTE AUTO 0.75 10^3/uL (0.00-1.50); MONOCYTES PERCENT AUTO 8.2 % (0-10); NEUTROPHILS ABSOLUTE AUTO 3.82 x10^3/uL (1.80-8.00); NEUTROPHILS PERCENT AUTO 41.6 % (41-71); PLATELET COUNT,PLT 204 10^3/uL (150-400); WHITE BLOOD CELL COUNT,WBC 9.2 10^3/uL (4.0-11.0)
[2023-06-11] MEDS: Formoterol/Mometasone 100-5 MCG 8.8 GM Inhaler IH SCH ×2 (08:27→20:34)
[2023-06-11] MEDS: Gabapentin 300 MG Cap PO SCH ×2 (08:28→20:32)
[2023-06-11] MEDS: FLUoxetine 20 MG Cap PO SCH (08:28)
[2023-06-11] MEDS: Apixaban 5 MG Tab PO SCH ×2 (08:28→20:33)
[2023-06-11] MEDS: Calcium Carbonate/Vitamin D3 1250 MG-5 MCG Tab PO SCH ×2 (08:28→20:32)
[2023-06-11] MEDS: Polyvinyl Alcohol 1.4% Ophth Soln 15 ML Bottle EYEBOTH SCH ×3 (08:30→20:35)
[2023-06-11 08:31] LABS: ALBUMIN 3.2 g/dL (3.4-5.0); BILIRUBIN DIRECT 0.1 mg/dL (0.0-0.3); BILIRUBIN TOTAL 0.3 mg/dL (0.0-1.0); CALCIUM 8.9 mg/dL (8.4-10.1); CREATININE 1.2 mg/dL (0.6-1.0); EST CRCL DRUG DOSING (CG) 39.09 mL/min; MAGNESIUM 1.5 mg/dL (1.8-2.4); POTASSIUM,K 3.9 mEq/L (3.5-5.0); PROTEIN TOTAL,TP 6.8 g/dL (6.4-8.2)
[2023-06-11] MEDS: Metoprolol Succinate 25 MG Tab.ER PO SCH (08:34)
[2023-06-11] MEDS: Hydrochlorothiazide 12.5 MG Cap PO SCH (08:34)
[2023-06-11] MEDS: Losartan 100 MG Tab PO SCH (08:34)
[2023-06-11] MEDS: metFORMIN 500 MG Tab PO SCH ×2 (08:43→17:33)
[2023-06-11] MEDS: REMDESIVIR 100 MG in Sodium Chloride 0.9% 100 ML IV SCH (16:18)
[2023-06-11] MEDS: Magnesium Chloride 64 MG Tab.ER PO SCH (17:33)
[2023-06-11] MEDS: Liraglutide (rDNA Origin) 0.6 MG/0.1 ML 3 ML Pen SUBCUT SCH (17:35)
[2023-06-11] MEDS: traZODone 50 MG Tab PO SCH (20:33)
[2023-06-11] MEDS: Montelukast 10 MG Tab PO SCH (20:33)
[2023-06-11] MEDS: atorvaSTATin 10 MG Tab PO SCH (20:33)
[2023-06-11] MEDS: Fluticasone NASAL Spray 16 GM Bottle NASBOTH SCH (20:34)
[2023-06-11] MEDS: Acetaminophen 325 MG Tab PO PRN (20:41)
[2023-06-12] MEDS: Benzonatate 100 MG Cap PO PRN ×3 (00:28→19:35)
[2023-06-12 07:57] LABS: ALBUMIN 3.1 g/dL (3.4-5.0); BILIRUBIN DIRECT 0.1 mg/dL (0.0-0.3); BILIRUBIN TOTAL 0.3 mg/dL (0.0-1.0); CALCIUM 8.5 mg/dL (8.4-10.1); CREATININE 1.2 mg/dL (0.6-1.0); EST CRCL DRUG DOSING (CG) 39.09 mL/min; POTASSIUM,K 4.2 mEq/L (3.5-5.0); PROTEIN TOTAL,TP 6.6 g/dL (6.4-8.2)
[2023-06-12] MEDS: Losartan 100 MG Tab PO SCH (08:04)
[2023-06-12] MEDS: Gabapentin 300 MG Cap PO SCH ×2 (08:04→19:34)
[2023-06-12] MEDS: Calcium Carbonate/Vitamin D3 1250 MG-5 MCG Tab PO SCH ×2 (08:04→19:34)
[2023-06-12] MEDS: FLUoxetine 20 MG Cap PO SCH (08:04)
[2023-06-12] MEDS: metFORMIN 500 MG Tab PO SCH ×2 (08:05→17:16)
[2023-06-12] MEDS: Hydrochlorothiazide 12.5 MG Cap PO SCH (08:05)
[2023-06-12] MEDS: Formoterol/Mometasone 100-5 MCG 8.8 GM Inhaler IH SCH ×2 (08:05→19:36)
[2023-06-12] MEDS: Metoprolol Succinate 25 MG Tab.ER PO SCH (08:05)
[2023-06-12] MEDS: Apixaban 5 MG Tab PO SCH ×2 (08:05→19:34)
[2023-06-12] MEDS: Magnesium Chloride 64 MG Tab.ER PO SCH ×2 (08:05→17:16)
[2023-06-12] MEDS: Polyvinyl Alcohol 1.4% Ophth Soln 15 ML Bottle EYEBOTH SCH ×3 (08:06→19:36)
[2023-06-12] MEDS: Nitrofurantoin Monohydrate/Macrocrystalline 100 MG Cap PO SCH ×2 (11:01→17:15)
[2023-06-12] MEDS: REMDESIVIR 100 MG in Sodium Chloride 0.9% 100 ML IV SCH (15:50)
[2023-06-12] MEDS: Liraglutide (rDNA Origin) 0.6 MG/0.1 ML 3 ML Pen SUBCUT SCH (17:27)
[2023-06-12] MEDS: atorvaSTATin 10 MG Tab PO SCH (19:34)
[2023-06-12] MEDS: traZODone 50 MG Tab PO SCH (19:35)
[2023-06-12] MEDS: Montelukast 10 MG Tab PO SCH (19:35)
[2023-06-12] MEDS: Fluticasone NASAL Spray 16 GM Bottle NASBOTH SCH (19:36)
[2023-06-12] MEDS: Acetaminophen 325 MG Tab PO PRN (21:37)
[2023-06-13 07:30] LABS: BILIRUBIN DIRECT 0.1 mg/dL (0.0-0.3); BILIRUBIN TOTAL 0.3 mg/dL (0.0-1.0); CALCIUM 8.8 mg/dL (8.4-10.1); CREATININE 1.2 mg/dL (0.6-1.0); EST CRCL DRUG DOSING (CG) 39.09 mL/min; POTASSIUM,K 4.7 mEq/L (3.5-5.0); PROTEIN TOTAL,TP 6.4 g/dL (6.4-8.2)
[2023-06-13] MEDS: Polyvinyl Alcohol 1.4% Ophth Soln 15 ML Bottle EYEBOTH SCH (07:51)
[2023-06-13] MEDS: Magnesium Chloride 64 MG Tab.ER PO SCH (07:52)
[2023-06-13] MEDS: Formoterol/Mometasone 100-5 MCG 8.8 GM Inhaler IH SCH (07:52)
[2023-06-13] MEDS: Metoprolol Succinate 25 MG Tab.ER PO SCH (07:52)
[2023-06-13] MEDS: Calcium Carbonate/Vitamin D3 1250 MG-5 MCG Tab PO SCH (07:52)
[2023-06-13] MEDS: Nitrofurantoin Monohydrate/Macrocrystalline 100 MG Cap PO SCH (07:53)
[2023-06-13] MEDS: Gabapentin 300 MG Cap PO SCH (07:53)
[2023-06-13] MEDS: Apixaban 5 MG Tab PO SCH (07:53)
[2023-06-13] MEDS: Hydrochlorothiazide 12.5 MG Cap PO SCH (07:53)
[2023-06-13] MEDS: Losartan 100 MG Tab PO SCH (07:54)
[2023-06-13] MEDS: metFORMIN 500 MG Tab PO SCH (07:54)
[2023-06-13 07:55] VITALS: BP 133/65; PULSE 61
[2023-06-13] MEDS: FLUoxetine 20 MG Cap PO SCH (07:55)
== END 2023-06-13 11:23 | disposition home or self-care (01) | DRG 177 ==
LOC: CC.MS 14:17 → UNDOADMIN 14:17 → CC.MS 15:46
PROVIDERS: ADMIT Nurse Practitioner; ATTEND Nurse Practitioner
PROC: XW033E5 Introduction of Remdesivir Anti-infective into Peripheral Vein, Percutaneous Approach, New Technology Group 5 (ICD-10-PCS; principal; 2023-06-11)
DX: U07.1 COVID-19 (principal); J12.82 Pneumonia due to coronavirus disease 2019; N39.0 Urinary tract infection, site not specified; E83.42 Hypomagnesemia; R42 Dizziness and giddiness; B95.2 Enterococcus as the cause of diseases classified elsewhere; E11.51 Type 2 diabetes mellitus with diabetic peripheral angiopathy without gangrene; E78.00 Pure hypercholesterolemia, unspecified; K21.9 Gastro-esophageal reflux disease without esophagitis; J45.909 Unspecified asthma, uncomplicated; I48.91 Unspecified atrial fibrillation; M19.90 Unspecified osteoarthritis, unspecified site; E66.9 Obesity, unspecified; F32.A Depression, unspecified; I12.9 Hypertensive chronic kidney disease with stage 1 through stage 4 chronic kidney disease, or unspecified chronic kidney disease; E11.22 Type 2 diabetes mellitus with diabetic chronic kidney disease; N18.9 Chronic kidney disease, unspecified; Z90.49 Acquired absence of other specified parts of digestive tract; Z98.49 Cataract extraction status, unspecified eye; Z88.0 Allergy status to penicillin; Z88.2 Allergy status to sulfonamides; Z88.8 Allergy status to other drugs, medicaments and biological substances; Z79.01 Long term (current) use of anticoagulants; Z79.84 Long term (current) use of oral hypoglycemic drugs; Z79.899 Other long term (current) drug therapy; Z99.81 Dependence on supplemental oxygen
CPT/HCPCS: 36415; 71045; 80053; 81001; 82248; 82947; 83735; 84484; 85025; 85730; 87086; 87088; 87186; 87804; 93005; 93010; 94640; 99223; 99232; 99233; 99238; A9270-GY; J0248; J3475; J3490; J7050; U0002